=== PATIENT | female | born 2000 | race Caucasian/White ===

== ENCOUNTER 2022-05-21 16:53 | Outpatient (CLI) | payer BC, SELFPAY ==
--- NOTE | 2022-05-21 17:00 | CRLHL7_ITS ---
For Patients: As a result of the Century Cures Act, medical imaging exams and procedure reports are released immediately into your electronic medical record. You may view this report before your referring provider. If you have questions, please contact your health care provider. INDICATION: DYSMENORRHEA COMPARISON: none TECHNIQUE: 2D naqvi scale and color Doppler images were acquired of the pelvis using a transabdominal and transvaginal approach. FINDINGS: Sonographic images demonstrate a normal size and smooth outer contour of the uterus. Uterus measures 5.8 cm in length by 2.7 cm in AP diameter by 3.1 cm in transverse dimension. The myometrium has a normal uniform echotexture. The endometrial lining appears normal and measures 3 mm in composite thickness. The right ovary measures 2.3 x 1.4 x 2.4 cm in size and the left ovary measures 2.4 x 1.3 x 1.3 cm. The ovaries demonstrate normal arterial and venous blood flow on color Doppler analysis. There are no suspicious fluid collections within the cul-de-sac. IMPRESSION: Normal pelvic ultrasound. Dictated by Johann Cline MD @ 05/22/2022 10:15:34 AM (Electronically Signed)
--- OUTSIDE RECORDS SUMMARY | 2022-06-12 16:17 | XMS_ITS | Continuity of Care Document ---
:2000 Author Organization [facility] Address [address] [address] [place] [address] Care Team Providers Name Role Phone Endoscopy [place], [place] Unavailable Unavailable Procedures Procedure Date Ugi En Colono Advance Directives Directive Yes / No Effective Date File Name No Information Encounters Encounter Practice Location Reason(s) Diagnoses Date Provider Provide rs Description For Visit Copied on Encounter [facility] No Endoscopy Referring Endoscopy Endoscopy Information -2017 Center Provider : [facility]. [place] [address] [id number], [address] [place], [place], [place], [place], [address] [place] [id number], [id number], [facility] [address] [facility] tel:[phone] [place], [place], [id number] . tel:[phone] Family History Family Member Type Diagnosis Age At Onset No Information Payers Payer name Insurance type Covered democrat ID Authorization(s ) [employer] BL [id number] Social History Type Description Quantity Date Captured Comments Sex Female Smoking Status No Information Chief Complaint And Reason For Visit No Information Reason For Referral Reason For Referral No Information Plan Of Treatment Date Type Action Status No Information History Of Present Illness Encounter Date Complaint History Of Present I llness No Information Functional Status Date Functional Assessment No Information Instructions Date Instruction Additional Informati on No Information Assessments Type Assessment Date No Information Patient Care Teams Name Effective Dates (start - stop) Status M embers No Information
--- OUTSIDE RECORDS SUMMARY | 2022-06-12 16:17 | XMS_ITS | Continuity of Care Document ---
:2000 Author Organization [facility] Address [address] [address] [place] [address] Phone Care Team Providers Name Role Phone Felix HERNÁNDEZ, Akiko Unavailable Unavailable Allergies, Adverse Reactions, Alerts Substance Reaction Status Criticality No Known Allergies Active No Informatio n Medications Medication Instructions Dosage Effective Dates Status Comment s (start - stop) Tylenol 325 mg Take Tylenol 650mg - Active tablet PO half hour before infusion Remicade 100 mg Administer Remicade - Active intravenous solution 7mg/kg every eight weeks, infuse by IV route Claritin-D 24 Hour take 1 tablet by - Active 10 mg-240 mg oral route as needed tablet,extended release Tylenol 325 mg Take Tylenol 650mg - Active tablet PO half hour before infusion Remicade 100 mg Administer Remicade - Active intravenous solution 7mg/kg every eight weeks, infuse by IV route Dinora (28) 0.3 take 1 tablet by 1.00 tablet - Active mg-30 mcg tablet oral route every day Vitamin D3 1,000 take 1 capsule by 1 capsule - Active unit capsule oral route every day Ventolin HFA 90 inhale 2 puff by - Active mcg/actuation inhalation route aerosol inhaler every 4 - 6 hours as needed multivitamin tablet take 1 tablet by - Active oral route every day with food Procedures Procedure Date IV Infusion Up To 1 Hour Remicade Per 10 Mg Remicade Per 10 Mg IV Infusion Up To 1 Hour Remicade Per 10 Mg IV Infusion Up To 1 Hour Remicade Per 10 Mg IV Infusion Up To 1 Hour Remicade Per 10 Mg IV Infusion Up To 1 Hour Remicade Per 10 Mg Offic/outpt E&m Estab Low-mod IV Infusion Up To 1 Hour Remicade Per 10 Mg IV Infusion Up To 1 Hour Remicade Per 10 Mg Remicade Per 10 Mg Routine Serum Collection Bld Ct; Hg/pltlt Ct Auto/compl Hepatic Function Panel IV Infusion Up To 1 Hour Remicade Per 10 Mg Remicade Per 10 Mg IV Infusion Up To 1 Hour Remicade Per 10 Mg IV Infusion Up To 1 Hour Remicade Per 10 Mg Remicade Per 10 Mg Routine Serum Collection Bld Ct; Hg/pltlt Ct Auto/compl Sed Rate, Erythrocyte; Auto C-reactive Prot Comp Metabolic Panel Vitamin D; 25 Hydroxy Bilirubin; Direct IV Infusion Up To 1 Hour Remicade Per 10 Mg Remicade Per 10 Mg IV Infusion Up To 1 Hour Remicade Per 10 Mg Remicade Per 10 Mg IV Infusion Up To 1 Hour Remicade Per 10 Mg Remicade Per 10 Mg Routine Serum Collection Bld Ct; Hg/pltlt Ct Auto/compl Sed Rate, Erythrocyte; Auto Comp Metabolic Panel Cyanocobalamin C-reactive Prot Established Level 4 or 25-39 min IV Infusion Up To 1 Hour Remicade Per 10 Mg IV Infusion Up To 1 Hour Remicade Per 10 Mg Routine Serum Collection Hepatic Function Panel Bld Ct; Hg/pltlt Ct Auto/compl IV Infusion Up To 1 Hour Remicade Per 10 Mg Small Bowel PillCam Capsule 1st Day Offic/outpt E&m Estab Mod-hi 2 Colonoscopy Flex; W/bx 1/mx Ugi Endo; W/bx 1/mx Level Iv-surg Path Gross/micro Offic/outpt E&m Estab Mod-hi 2 Offic/outpt E&m Estab Mod-hi 2 Offic/outpt E&m Estab Mod-hi 2 Offic/outpt E&m Estab Mod-hi 4 Routine Serum Collection Bld Ct; Hg/pltlt Ct Auto/compl Sed Rate, Erythrocyte; Auto C-reactive Prot Comp Metabolic Panel Vitamin D; 25 Hydroxy Offic/outpt E&m Estab Mod-hi 2 Routine Serum Collection Bld Ct; Hg/pltlt Ct Auto/compl Sed Rate, Erythrocyte; Auto C-reactive Prot Comp Metabolic Panel Iron Vitamin D; 25 Hydroxy Routine Serum Collection Bld Ct; Hg/pltlt Ct Auto/compl Sed Rate, Erythrocyte; Auto C-reactive Prot Comp Metabolic Panel Iron Vitamin D; 25 Hydroxy Offic/outpt E&m [facility] Mod-ga 2 Routine Serum Collection Bld Ct; Hg/pltlt Ct Auto/compl Sed Rate, Erythrocyte; Auto Cyanocobalamin C-reactive Prot Comp Metabolic Panel Iron Iron Binding Capacity Vitamin D; 25 Hydroxy Offic/outpt E&m [facility] Mod-ga 2 Colonoscopy Flex; W/bx 1/mx Ugi Endo; W/bx 1/mx Level Iv-surg Path Gross/micro Special Stains; Grp I Microorg Offic/outpt E&m [facility] Routine Serum Collection Bld Ct; Hg/pltlt Ct Auto/compl Sed Rate, Erythrocyte; Auto C-reactive Prot Comp Metabolic Panel Iron Iron Binding Capacity Ag-immunoassay; Hep B Surface Hep B Core Antibody Advance Directives Directive Yes / No Effective Date File Name No Information Encounters Encounter Practice Location Reason(s) Diagnoses Date Provider Provide rs Description For Visit Copied on Encounter [facility] No Information Felix Dig[facility]ive [place] Akiko. [facility], Clinic [id number], [address], [place] [address], [place], [place], [place] [id number], [place], [place], [place] [id number], tel:[phone] US. [phone] tel:[phone] [facility] Crohn's disease Steve HERNÁNDEZ Refe rring Digestive [facility] Que. 3001 Prov ider: Health PA, and lg int w/o 2 Lenorah Refer ral PO [address] complications [address] [place], [place]. [address], [address], [place], [place], [place], [place], [id number], [id number], [place]. tel: tel:[phone] [facility] Crohn's disease Triston- Felix [facility] of both [facility] MD Wharton. Health PA, and lg int w/o 2 3001 PO Box complications [place] [address], [address], [place] [address], [place], [place], [place] [id number], [place], [place], [place] [id number], tel: US. [phone] tel:[phone] [facility] Crohn's disease Miguelina HERNÁNDEZ Refer ring Digestive [place] of both [facility] [place]. 3001 Prov ider: Health PA, and lg int w/o 2 Rene Refer ral PO [place] [address] [place]. [address], [address], [place], [place], [place], [place], [id number], [id number], [place]. tel: tel:[phone] [facility] Crohn's disease Bethany HERNÁNDEZ Referr [facility] [place] of both [facility] Mushtaq. Provide r: Health PA, and lg int w/o 2 3000 Referr al PO [address] complications Rene [address]. [address], [address], [place] [address], [place], [place], [place] [id number], [place], [place], [place] [id number], tel: US. [phone] tel:[phone] [facility] Crohn's disease [facility] of both small MD Wharton. Health PA, and lg int w/o 2 300 PO [address] complications [place] [address], [address], [place] [address], [place], [place], [place] [id number], [place], [place], [place] [address], tel: US. [phone] tel:[phone] [facility] Crohn's disease Dec-2 Jimenez DO Referr ing [facility] [place] of both small 8- Александр. 3001 Prov ider: Health PA, and lg int w/o 1 Lenorah Refer ral PO [address] [place], [place]. [address], [address], [place], [place], [place], [place], [id number], [id number], [place]. tel: tel:[phone] [facility] Crohn's disease Oct- [place] [facility] [place] of both small 7- MD Wharton. Health PA, and lg int w/o 300 PO Box complications Rene [address], [address], [place] [address], [place], [place], [place] [id number], [place], [place], [place] [address], tel: US. [phone] tel:[phone] [facility] Crohn's disease Sep- Rank Referri ng [facility] [place] of both small - Estrada. Provide r: Health PA, and lg int w/o 3000 Referr al PO Box complications [place] [address]. [address], [address], [place] [address], [place], [place], [place] [id number], [place], [place], [place] [address], tel: US. [phone] tel:[phone] Offic/outpt [facility] Crohn's disease Aug- Felix R idania E&m Estab Digestive [place] Symptoms of both small 3- MD Wharton. Provider: Low-mod Health PA, Clinic or and lg int w/o 300 Referr al PO Box Concerns complications [place] Self. [address], (chief [address], [place] complaint) [address], [place], [place], Previous [place] [id number], History [place], [place], [place] Review [id number], tel: (chief [place]. [phone] complaint) tel:[phone] [facility] Crohn's disease Sep- Teagarden Refer ring Dig[facility] [place] of both small 0-202 DO Cheng. Provid er: Health PA, and lg int w/o 1 3001 Referr al PO Box complications Rene [address]. [address], [address], [place] [address], [place], [place], [place] [id number], [place], [place], [place] [address], tel:+ US. [phone] tel:[phone] [facility] Crohn's disease Jul-0 [place] [facility] [place] of both small MD Wharton. Health PA, and lg int w/o 1 3001 PO Box complications [address]ene [address], [address], [place] [address], [place], [place], [place] [id number], [place], [place], [place] [address], tel:+ US. [phone] tel:[phone] [facility] GI Crohn's disease Hanouneh Referr ing [facility] [place] Symptoms of both small MD Provide r: Health PA, or and lg int w/o 1 White. Refer ral PO Box Concerns complications 3001 Self. [address], (chief [place] complaint) Street NE, [place], [place], [address], [id number], [place], [place], tel:+ [phone] [place]. tel:[phone] [facility] Crohn's disease [place] Re ferring Digestive of both small MD Wharton. Provid er: Health PA, and lg int w/o 1 3001 Referr al PO Box complications Rene [address]. [address], [address], [place] [address], [place], [place], [place] [id number], [place], [place], [place] [address], tel:+ US. [phone] tel:[phone] [facility] Crohn's disease March- Rank Referri ng [facility] [place] of both small Estrada. Provide r: Health PA, and lg int w/o 1 3001 Referr al PO Box complications [place] [address]. [address], [address], [place] [address], [place], [place], [place] [id number], [place], [place], [place] [id number], tel:+ US. [phone] tel:[phone] [facility] No Information [place] [facility] [place] MD Wharton. Health PA, 1 [address]001 [address] [place] [address], [address], [place] [address], [place], [place], [place] [id number], [place], [place], [place] [address], tel: US. [phone] tel:[phone] [facility] Crohn's disease Teagarden Refer ring [facility] [place] of both small DO Cheng. Provid er: Health PA, and lg int w/o 1 3001 Referr al PO Box complications [place] [address]. [address], [address], [place] [address], [place], [place], [place] [id number], [place], [place], [place] [address], tel: US. [phone] tel:[phone] [facility] Crohn's disease Alec HERNÁNDEZ Refjerry rring Digestive [place] of both [place]. Provide r: Health PA, and lg int w/o 3001 Referr al PO Box complications [place] [address]. [address], [address], [place] [address], [place], [place], [place] [id number], [place], [place], [place] [id number], tel:+ US. [phone] tel:[phone] [facility] Crohn's disease [place] Re ferring Digestive of both small MD Mackenzie. Provid er: Health PA, and lg int w/o 3001 Referr al PO Box complications [place] [address]. [address], [address], [place] [address], [place], [place], [place] [id number], [place], [place], [place] [address], tel: US. [phone] tel:[phone] [facility] Crohn's disease [place] [facility] [place] of both small MD Wharton. Health PA, Clinic and lg int w/o 1 3001 PO Box complications Rene [address], [address], [place] [address], [place], [place], [place] [id number], [place], [place], [place] [address], tel:+ US. [phone] tel:[phone] [facility] Crohn's disease Dec-0 Benji HERNÁNDEZ Refe rring [facility] [place] of both small 2- Rudy. Provide r: Health PA, and lg int w/o 0 3001 Referr al PO Box complications [place] [address]. [address], [address], [place] [address], [place], [place], [place] [id number], [place], [place], [place] [id number], tel:+ US. [phone] tel:[phone] [facility] No Information Dec-0 Benji HERNÁNDEZ Digestive Rudy. Health PA, 0 [address]001 [address] [place] [address], [address], [place] [address], [place], [place], [place] [id number], [place], [place], [place] [address], tel:+ US. [phone] tel:[phone] [facility] Crohn's disease Aug-0 Benji HERNÁNDEZ Refe rring Dig[facility]ive [place] of both small 7 Rudy. Provide r: Health PA, and lg int w/o 0 3001 Referr al PO Box complications Rene [address]. [address], [address], [place] [address], [place], [place], [place] [id number], [place], [place], [place] [id number], tel:+ US. [phone] tel:[phone] [facility] Crohn's disease Nikunj HERNÁNDEZ Refer ring Dig[facility]ive [place] of both small 0-202 Edilberto. Provide r: Health PA, and lg int w/o 0 3001 Referr al PO Box complications [place] [address]. [address], [address], [place] [address], [place], [place], [place] [id number], [place], [place], [place] [address], tel:+ US. [phone] tel:[phone] [facility] Crohn's disease Jun- Felix washburning Digestive of both small 0-202 MD Wharton. Provid er: Health PA, and lg int w/o 0 3001 Referr al PO Box complications [place] [address]. [address], [address], [place] [address], [place], [place], [place] [id number], [place], [place], [place] [address], tel: US. [phone] tel:[phone] Established [facility] Crohn's disease May- [place] R eferring Level 4 or Digestive [place] Symptoms of both small - MD Wharton . Provider: 25-39 min Health PA, Clinic or and lg int w/o 0 3001 Refe rral PO Box Concerns complications [place] Self. [address], (chief [address], [place] complaint) [address], [place], [place], [place] [id number], [place], [place], [place] [address], tel: US. [phone] tel:[phone] [facility] Crohn's disease Triston- Alec HERNÁNDEZ Refe rring Digestive [place] of both small - Teo. Provide r: Health PA, and lg int w/o 0 3001 Referr al PO Box complications [place] [address]. [address], [address], [place] [address], [place], [place], [place] [id number], [place], [place], [place] [address], tel: US. [phone] tel:[phone] [facility] Crohn's disease Feb- America HERNÁNDEZ Refer ring Digestive [place] of both small 0-202 Russell. Provider : Health PA, and lg int w/o 0 3001 Referr al PO Box complications [place] [address]. [address], [address], [place] [address], [place], [place], [place] [id number], [place], [place], [place] [address], tel: US. [phone] tel:[phone] [facility] Crohn's disease Apr-2 Felix Perez ferring Digestive of both small 0-202 MD Wharton. Provid er: Health PA, and lg int w/o 0 3001 Referr al PO Box complications [place] [address]. [address], [address], [place] [address], [place], [place], [place] [id number], [place], [place], [place] [address], tel:[phone] US. [phone] tel:[phone] [facility] Crohn's disease Estefany HERNÁNDEZ Refe rring [facility]ive [place] [facility] : Health PA, and lg int w/o 0 3001 Referr al PO Box complications [place] [address]. [address], [address], [place] [address], [place], [place], [place] [id number], [place], [place], [place] [address], tel:+ US. [phone] tel:[phone] [facility] No Information [place] [facility] [place] MD Wharton. Health PA, Clinic 0 3001 [address] [place] [address], [address], [place] [address], [place], [place], [place] [id number], [place], [place], [place] [address], tel: US. [phone] tel:[phone] [facility] Crohn's disease [place] Dig[facility]ive of both small MD Wharton. Health PA, and lg int w/o 0 3001 PO Box complications [place] [address], [address], [place] [address], [place], [place], [place] [id number], [place], [place], [place] [address], tel:+ US. [phone] tel:[phone] [facility] [place] [facility] [place] of both small MD Wharton. Health PA, Clinic and lg int w/o 0 3001 PO Box complications Rene [address], [address], [place] [address], [place], [place], [place] [id number], [place], [place], [place] [address], tel: US. [phone] tel:[phone] [facility] Crohn's disease Kalyan HERNÁNDEZ Ref erring Digestive of both small 3-201 Emma. Provider : Health PA, and lg int w/o 9 3001 Referr al PO Box complications Rene [address]. [address], [address], [place] [address], [place], [place], [place] [id number], [place], [place], [place] [address], tel: US. [phone] tel:[phone] [facility] No Information Felix Digestive 2-201 MD Wharton. [facility], 9 3001 [address] [place] [address], [address] [place], [facility] [address], [place], [place], [place] [id number], [place], [place], [place] [address], tel: US. [phone] tel:[phone] Offic/outpt [facility] GI Crohn's disease [place] E&m Estab Digestive [place] Symptoms of both small 8-201 MD Wharton. [facility] 2 [facility], Clinic or and lg int w/o 3001 PO Box Concerns complications Rene [address], (chief [address] NE, [facility] complaint) [address], [place], [place], [place] [id number], [place], [place], [place] [address]12[address], tel: US. [phone] tel:[phone] [facility] Crohn's disease Felix Refer ring Digestive End[facility] of both small 3-201 MD Wharton. Prov ider: [facility], [place] and lg int w/o 300 Aayush [place], [address], hn's disease of [address] NE, [address] [place] [address] both small and [address], [place], [place], lg int w/o [place] [address], [id number], complicationsCro s, [place], [place] hn's disease of [id number], Luque y, tel: both [place] and [place]. [place], 55 416. [phone] lg int w/o tel: tel:[phone] [facility] Cro[facility] Felix emerson E&m Estab Digestive [place] Symptoms of both small 1-201 MD Wharton. Provider: [facility] 2 [facility], Clinic or and lg int w/o 8 3001 Refer ral PO Box Concerns complications [place] Self. [address], (chief [address] NE, [facility] complaint) [address], [place], [place], [place] [id number], [place], [place], [place] [address], tel: US. [phone] tel:[phone] [facility] Peds Clinic Crohn's disease [place] Digestive of both small 3-201 MD Akiko. Health PA, and lg int w/o 8 3001 PO Box complications [place] [address], [address], [facility] [address], [place], [place], [place] [id number], [place], [place], [place] [address], tel: US. [phone] tel:[phone] Offic/outpt [facility] GI Crohn's disease [place] Referring E&m Estab Digestive Symptoms of both small 0-201 MD Akiko. Pro vider: Mod-hi 2 Health PA, or and lg int w/o 300 Juan Carlos a PO Box Concerns complications [facility] , [address], ([address], [address] [facility] complaint) [address], [place], [place], [place] [address], [id number], [place], [place], [place] [id number], [place], tel: [place], [address]. 64484[address] tel: tel:[phone] Offic/outpt [facility] GI Crohn's disease [place] E&m Estab Digestive Symptoms of both small 2-201 MD Akiko. Mod-hi 2 Health PA, or and lg int w/o 300 PO Box Concerns complications [place] [address], (chief [address], [place] complaint) [address], [place], [place], [place] [id number], [place], [place], [place] [address], tel: US. [phone] tel:[phone] [facility] Pediatric Crohn's disease [place] [facility] of both small 6-201 MD Akiko. Health PA, and lg int w/o 3001 PO Box complications [place] [address], [address] NE, [facility] [address], [place], [place], [place] [id number], [place], [place], [place] [address], tel: US. [phone] tel:[phone] [facility] Pediatric Crohn's disease [place] [facility] of both small 8-201 MD Wharton. Health PA, and lg int w/o 6 3001 PO Box complications Rene [address], [address], [place] [address], [place], [place], [place] [id number], [place], [place], [place] [address], tel: US. [phone] tel:[phone] Offic/outpt [facility] Pediatric GI Crohn's disease [place] E&m Estab Dig[facility]ive Clinic Symptoms of both small 0-201 MD Wharton. Mod-hi 4 Health PA, or and lg int w/o 6 3001 PO Box Concerns complications [place] [address], (chief [address], [place] complaint) [address], [place], [place], [place] [id number], [place], [place], [place] 8[address], tel: US. [phone] tel:[phone] [facility] [place] Digestive of both small 5-201 MD Wharton. Health PA, and lg int w/o 6 3001 PO Box complications Rene [address], [address], [place] [address], [place], [place], [place] [id number], s, [place], [place] [address], tel: US. [phone] tel:[phone] [facility] Pediatric Crohn's disease [place] [facility] of both small 9-201 MD Wharton. Health PA, and large 5 3001 PO Box intestine Rene [address], [address], [place] complications [address], [place], [place], [place] [id number], s, [place], [place] [address], tel: US. 8955800 tel:[phone] Offic/outpt [facility] Pediatric GI Crohn's disease [place] R eferring E&m Estab Digestive Clinic Symptoms of both small 9-201 MD Wharton. Pro vider: Mod-hi 2 Health PA, or and large 5 3001 Referral PO Box Concerns intestine Rene Self. [address], (chief without [address], [place] complaint) complications [address], [place], [place], [place] [id number], [place], [place], [place] [address], tel: US. [phone] tel:[phone] [facility] No Information [place] [facility]ive 0-201 MD Wharton. Health PA, 5 [address]001 [address] [place] [address], [address], [place] [address], [place], [place], [place] [id number], [place], [place], [place] [address], tel: US. 0834091 tel:[phone] [place] Pediatric Crohn's [facility] Digestive Clinic Small/large 0-201 MD Wharton. Health PA, Intestine 5 [address]001 [address] [place] [address], [address], [place] [address], [place], [place], [place] [id number], [place], [place], [place] 17[address]645[address], tel: US. 6246774 tel:[phone] Offic/outpt [facility] Crohn's [place] E&m [facility] Digestive Clinic Symptoms Small/large 6-201 MD Wharton. Mod-hi 2 Health PA, or IntestineCrohn's 5 3001 PO Box Concerns disease of both Rene [address], (chief small and large Street NE, [place] complaint) intestine [address], [place], [place], without [place] [id number], complications s, [place], [place] 939636447, tel: US. [phone] tel:[phone] Offic/outpt [facility] Crohn's [place] E&m [facility] Digestive Clinic Symptoms Small/large 4-201 MD Wharton. Mod-hi 2 Health PA, or Intestine 5 3001 PO Box Concerns Rene [address], (chief [address] NE, [place] complaint) [address], [place], [place], [place] [id number], [place], [place], [place] 9[address], tel: US. 9338670 tel:[phone] [facility] Failure To [place] HERNÁNDEZ Digestive Endoscopy Thrive 3-201 Terra. [facility], [place] PediatricsFailur 5 3001 [address] e To Thrive Rene [address], [address], Mayai al Enteritis [address], [place], [place], NosGastritisFail [place] [id number], ure To Thrive [place], [place], [place] Pediatrics [id number], tel:+2 US. [phone] tel:[phone] Offic/outpt [facility] Failure To [facility] Digestive Clinic Symptoms Thrive 9-201 MD Wharton. [facility], de Pediatrics 5 3001 PO Box Concerns [place] [address], (chief Street NE, [place] complaint) [address], [place], [place], [place] [id number], [place], [place], [place] 297[address], tel:+ US. [phone] tel:[phone] Family History Family Member Type Diagnosis Age At Onset Father Problem (finding) Crohn's disease Father Problem (finding) asthma Mother Problem (finding) Alive and well Maternal grandmother Problem (finding) Lymphoma Immunizations Vaccine Date Status Comments SARS-COV-2 (COVID-19) vaccine, administered N ote: [facility] bi-directional mRNA, spike protein, LNP, interf shefali ; Source: Other preservative free, 30 mcg/0.3mL Registry dose SARS-COV-2 (COVID-19) vaccine, administered N ote: [facility] bi-directional mRNA, spike protein, LNP, interf shefali ; Source: Other preservative free, 30 mcg/0.3mL Registry dose SARS-COV-2 (COVID-19) vaccine, administered N ote: [facility] bi-directional mRNA, spike protein, LNP, interf shefali ; Source: Other preservative free, 30 mcg/0.3mL Registry dose Influenza administered Note: [facility] bi-di rectional interface ; Sour ce: Other Registry Afluria Qd administered Note: [facility] bi-directional interface ; Sour ce: Other Registry Afluria Qd administered Note: [facility] bi-directional interface ; Sour ce: Other Registry meningococcal B vaccine, fully administered N ote: [facility] bi-directional recombinant interface ; Sour ce: Other Registry Fluzone Quad 6mo or older administered Note: [facility] bi-directional interface ; Sour ce: Other Registry meningococcal B vaccine, fully administered N ote: [facility] bi-directional recombinant interface ; Sour ce: Other Registry meningococcal polysaccharide administered Not e: [facility] bi-directional (groups A, C, Y and W-135) inter face ; Source: Other diphtheria toxoid conjugate Anna stry vaccine (MCV4P) Havrix pediatric administered Note: [facility] bi-d irectional interface ; Sour ce: Other Registry Human Papillomavirus 9-valent administered No te: [facility] bi-directional vaccine interface ; Sour ce: Other Registry Influenza administered Note: [facility] bi-di rectional interface ; Sour ce: Other Registry Influenza, injectable, administered Note: Inv alid documented quadrivalent, preservative free, admin date was 3 yrs or older . ; Source: Other Provider Human Papillomavirus 9-valent administered No te: [facility] bi-directional vaccine interface ; Sour ce: Other Registry Influenza administered Note: [facility] bi-di rectional interface ; Sour ce: Other Registry Influenza, injectable, administered Note: Inv alid documented quadrivalent, preservative free, admin date was 3 yrs or older . ; Source: Other Provider Human Papillomavirus 9-valent administered No te: [facility] bi-directional vaccine interface ; Sour ce: Other Registry Havrix pediatric administered Note: [facility] bi-d irectional interface ; Sour ce: Other Registry Human Papillomavirus 9-valent administered No te: [facility] bi-directional vaccine interface ; Sour ce: Other Registry Influenza administered Note: [facility] bi-di rectional interface ; Sour ce: Other Registry Influenza virus vaccine, administered Note: I nvalid documented injectable, quadrivalent, split admin date was virus, preservative free, 3 years . ; Source: or older Fluarix Quad 3070-0767 Other Provider meningococcal oligosaccharide administered No te: [facility] bi-directional (groups A, C, Y and W-135) inter face ; Source: Other diphtheria toxoid conjugate Anna stry vaccine (MCV4O) tetanus toxoid, reduced administered Note: [facility] bi-directional diphtheria toxoid, and acellular interface ; Source: Other pertussis vaccine, adsorbed Anna stry varicella virus vaccine administered Note: [facility] bi-directional interface ; Sour ce: Other Registry poliovirus vaccine, inactivated administered Note: [facility] bi-directional interface ; Sour ce: Other Registry measles, mumps and rubella virus administered Note: [facility] bi-directional vaccine interface ; Sour ce: Other Registry diphtheria, tetanus toxoids and administered Note: [facility] bi-directional acellular pertussis vaccine inte rface ; Source: Other Registry poliovirus vaccine, inactivated administered Note: [facility] bi-directional interface ; Sour ce: Other Registry measles, mumps and rubella virus administered Note: [facility] bi-directional vaccine interface ; Sour ce: Other Registry Haemophilus influenzae type b administered No te: [facility] bi-directional vaccine, PRP-T conjugate interfa ce ; Source: Other Registry diphtheria, tetanus toxoids and administered Note: [facility] bi-directional acellular pertussis vaccine inte rface ; Source: Other Registry varicella virus vaccine administered Note: [facility] bi-directional interface ; Sour ce: Other Registry Pneumovax administered Note: [facility] bi-di rectional interface ; Sour ce: Other Registry Pneumovax administered Note: [facility] bi-di rectional interface ; Sour ce: Other Registry Energix Pediatric administered Note: [facility] bi- directional interface ; Sour ce: Other Registry Haemophilus influenzae type b administered No te: [facility] bi-directional vaccine, PRP-T conjugate interfa ce ; Source: Other Registry Energix Pediatric administered Note: [facility] bi- directional interface ; Sour ce: Other Registry diphtheria, tetanus toxoids and administered Note: [facility] bi-directional acellular pertussis vaccine inte rface ; Source: Other Registry Pneumovax administered Note: [facility] bi-di rectional interface ; Sour ce: Other Registry Haemophilus influenzae type b administered No te: [facility] bi-directional vaccine, PRP-T conjugate interfa ce ; Source: Other Registry diphtheria, tetanus toxoids and administered Note: [facility] bi-directional acellular pertussis vaccine inte rface ; Source: Other Registry poliovirus vaccine, inactivated administered Note: [facility] bi-directional interface ; Sour ce: Other Registry Pneumovax administered Note: [facility] bi-di rectional interface ; Sour ce: Other Registry Haemophilus influenzae type b administered No te: [facility] bi-directional vaccine, PRP-T conjugate interfa ce ; Source: Other Registry Energix Pediatric administered Note: [facility] bi- directional interface ; Sour ce: Other Registry diphtheria, tetanus toxoids and administered Note: [facility] bi-directional acellular pertussis vaccine inte rface ; Source: Other Registry poliovirus vaccine, inactivated administered Note: [facility] bi-directional interface ; Sour ce: Other Registry Payers Payer name Insurance type Covered constitution party ID Authorization(s ) [facility] [id number] [facility] CI Remicade Social History Type Description Quantity Date Captured Comments Alcohol Use Details Unknown Caffeine Use Details Unknown Tobacco Use Status No Information Smoking Status No Information Sex Female Chief Complaint And Reason For Visit No Information Reason For Referral Reason For Referral No Information Plan Of Treatment Date Type Action Status Referral Ordered: ordered Hepatic Function Panel Appointment date/timeframe: 06/11/2016 Referral Ordered: ordered Financial Counselor Review Appointment date/timeframe: -today Referral Ordered: ordered Calprotectin, Fecal Appointment date/timeframe: -today Referral Ordered: ordered follow-up visit with Akiko knox MD 6 Months Appointment date/timeframe: 6 Months Referral Ordered: ordered MRI Enterography With Pelvis WIT HOUT And WITH Contrast Appointment date/timeframe: -today Appointment Segundo Fall BOOKED Appointment Segundo Fall BOOKED History Of Present Illness Encounter Date Complaint History Of Present I llness GI Symptoms or Concerns Previous History Review I had the pleasu re of seeing Segundo for follow-up regarding her Crohn's disease. As you remember, Segundo is 20 years old. and she was diagnosed in ear ly 2014. On her 1st endoscopy and colono scopy, there was mild chronic gastritis, c hronic active ileitis with granulomas and some mild patchy active colitis in the descending co juanjose. Segundo' father has stricturing terminal ileal Crohn's disease and is status post i leocecectomy and is on biologics now for ma ny years. Segundo has also been on Remicade for over 5 years now and has had excellent resolu tion of symptoms and improvement in infla mmatory markers.While her growth symptoms norm alized, she continued for a long time to have mildly elevated CRP levels on her laboratories. Her infliximab levels had been ranging between 8 and 11, but we still had concern for occu lt chronic terminal ileitis. Therefore, she underwent multiple tests to look for on going inflammation. She had a fecal calprote ctin, MR enterography and repeat endoscopy and colonoscopy. The repeat procedures were done on June 16, 2018 and were negative for an y ongoing inflammation. All of the biopsies were normal. The MRE showed some mild hyp erenhancement and restricted diffusion in the terminal ileum, but no thickening or evidence of stricturing disease or partial o bstruction. We also obtained a PillCam s tudy that was unremarkable. The ca lprotectin was normal. We made no changes to h er medications. Thankfully, for the 1st time in the last few years, her CRP victorino lized last year. We are continuing to follow .She receives 300mg of Remicade every 8 wee ks. She is due for her next infusion 09/08. She has received the COVID19 vaccine, wit h the second shot given in early March.Segundo is overall asymptomatic. She denies abdominal walker n, diarrhea, or hematochezia. She daigle s a normal appetite and intake and has not h ad any unintentional weight loss. She is studying at [employer]. She is in her sophomore year, and very busy with school (behavior science sydni benites, art minor) and with the [employer]. 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 GI Symptoms or Concerns GI Symptoms or Concerns I had the pleasu re of seeing Segundo for follow-up regarding her Crohn's disease. Segundo is now 20 yea rs old. She attends this virtual visit indepe ndently and provides verbal consent to pr oceed.As you remember, she was diagnosed in 2014. On her 1st endoscopy and colono scopy, there was mild chronic gastritis, c hronic active ileitis with granulomas and some mild patchy active colitis in the descending co juanjose. Segundo' father has stricturing terminal ileal Crohn's disease and is status post ileoc ecectomy and is on biologics now for ma ny years. Segundo has also been on Remicade for over 4 years now and has had excellent resolu tion of symptoms and improvement in infla mmatory markers.While her growth symptoms norm alized, she continued for a long time to have mildly elevated CRP levels on her laboratories. Her infliximab levels had been ranging between 8 and 11, but we still had concern for occu lt chronic terminal ileitis. Therefore, she underwent multiple tests to look fo GI Symptoms or Concerns I had the pleasu re of seeing Segundo for followup regarding h er Crohn's ileocolitis. I last saw her in May 2018. As you remember, she is 18-year-old w ho was diagnosed in early 2014. On endoscopy a nd colonoscopy, there was mild chronic gastrit is, chronic active ileitis with granulomas and some mild patchy active colitis in the desce nding colon. As you remember, Segundo' fa ther has stricturing terminal ileal Crohn 's disease and is status post ileocecectomy a nd is on biologic therapy. Segundo has been on R emicade for over 3 years now and has had exce llent resolution of symptoms and improve ment in inflammatory markers.While her gr owth and symptoms have normalized, she cont inues to have mildly elevated CRP levels on labs usually around 1 to 1.5. Her inflixim ab level has been between 8 and 11 on average. Last year, because of concerns of chronic occult inflammation in the small intestine, I r ecommended fecal calprotectin, MRE, a nd endoscopy and colonoscopy to assreddy s for underlyin GI Symptoms or Concerns I had the pleasu re of seeing Segundo for followup regarding h er terminal ileal Crohn's disease. As you know , she is a 17-year-old who was diagnosed in 2014. On endoscopy and colonoscopy, there w as mild nonspecific chronic gastritis an d chronic active ileitis with granulomas cons istent with Crohn's disease. She had manas e mild patchy active colitis in the desce nding colon. As you remember, Eric kendall has Crohn's disease, but it is inflammato ry in nature and in the terminal ileum as we ll. He has a history of a stricture. Segundo daigle s been on Remicade now for over 2 years. While her growth and symptoms had normalized, she continued to have mildly elevated CRP levels. Over time, with good biochemistries and a dequate Remicade levels, her CRP is diminishe d somewhat, but still remained in an eleva sam level. On April 13, with her last labs, it was quite low, but at level of 0.55 within normal ranges up to 0.3. Her albumin was also just a little low at 3.2 and her hemoglobin w as n GI Symptoms or Concerns I had the pleasu re of seeing Segundo for followup regarding h er terminal ileal Crohn's disease. As you know , she has had growth failure and in 2014, she had an upper GI small bowel follo w-through that revealed evidence of some ter branden ileitis. She then came to our practice and underwent upper endoscopy and colono scopy. There was mild nonspecific chronic gastritis, and chronic active ileitis with granulomas consistent with Crohn's disease and some mild patchy active colitis in the desce nding colon. As you remember, Eric kendall has Crohn's disease that is inflammatory in the terminal ileum as well. He has had a h istory of stricture. He reports that he has been on methotrexate and Humira and is likely switching to Stelara soon. We have been t racking Segundo with regard to her response to R emicade for growth and biochemistries. She has been quite healthy and asymptomatic overall , however, her laboratory values often show mi ldly elevated CRP levels. Over the last two oc GI Symptoms or Concerns I had the pleasu re of seeing Segundo for followup regarding h er terminal ileal Crohn's disease. As you know , she has had growth failure and in 2014, she had an upper GI small bowel follo wthrough that revealed evidence of some ter branden ileitis. She then came to our practice and underwent upper endoscopy and colono scopy the following week. There was mild nonsp ecific chronic gastritis and chronic active i leitis with granulomas consistent with Croh n's disease. Colonic biopsies showed no e vidence of colitis in the proximal colon. In t he descending colon, there was patchy mild acti ve colitis. Rectal biopsies were normal .As you remember, Segundo' father has Crohn's d isease as well. He also has terminal ileal d isease with a stricture. He has not yet had r equired resection, but he has been on methotre xate and Humira. To start, we used topical ther apies to see if her disease could be con trolled without systemic medication at first. However, her inflammatory markers and hypoa GI Symptoms or Concerns I had the pleasu re of seeing Segundo for followup regarding h er Crohn's disease. She has had growth failu re and an upper GI small bowel followthrough on December 20, 2014, revealed evidence of some terminal ileitis. She then underwent u pper endoscopy and colonoscopy on of last year. There was mild nonspecific chronic gastritis and chronic active ileit is with granulomas consistent with Croh n's disease. The colonic biopsies showed no e vidence of colitis in the ascending or transve rse regions. In the descending colon, th ere was patchy mild active colitis with subtle features of chronicity. Rectal biopsies were normal.As you remember, Segundo's father has Crohn's disease as well. He was just di agnosed in the last few years and has termin al ileal disease with stricture. He has no t yet required resection, but has been started on methotrexate and Humira. He attends t he visit with her today and also learned new information about the family history cori ham. Evidently, A GI Symptoms or Concerns I had the pleasu re of seeing Segundo for followup regarding h er Crohn's ileitis. As you know, she was diagno sed on December 27 after presenting with grow th failure and anemia. Her father also has Croh n's disease that is primarily affecting the terminal ileum. On biopsies, Segundo had granulomas in the terminal ileum along with chronic active ileitis. She also daigle d some mild patchy left-sided colitis.S he attends the visit with her father and repor ts feeling asymptomatic and overall quite we ll. She denies any fevers, oral ulcers, diarrhe a or blood in her stool. She has an excellent appetite and intake. She has continued to char[place] w significant improved weight gain since he r last visit. She is currently just on En tocort. I reviewed her last labs, which abbie edwards done in June. Her sed rate was 13, hemoglo bin 14 with an MCV of 87, and albumin 3.4. The glucose was mildly elevated at 118. CRP still elevated at 9 and iron level normal at 83.Segundo also had an MRE study on January 15, 12 05 GI Symptoms or Concerns I had the pleasu re of seeing Segundo for followup regarding h er Crohn's ileitis. As you know, she was diagno sed on December 27 and after presenting wit h a growth failure and anemia. As you remem sánchez, her father also has Crohn's disease that has primarily affected the terminal ileum. On biopsies, she had granulomas in the te rminal ileum along with chronic active ileit is. She also had some mild patchy left-sided co litis. She has continued to be asymptomatic. She attends the visit with her father and repor ts no new symptoms. No fevers, oral ulcers, diarrhea or blood in her stool. She has had a normal appetite and intake and is quite pleased that she has had significant weight g ain since her last visit. She has gained appro ximately five pounds since I saw her in early . She remains on iron supplementation and Entocort only. She also reports improved jaskaran rgy level. Father thinks that she has a david r color and no longer appears ill. GI Symptoms or Concerns I had the pleasu re of seeing Segundo for followup regarding h er new diagnosis of Crohn's disease. As you know, I first saw her on December 23. She has had long-standing growth failure. She also, on laboratory evaluation, had an e levated CRP and mild anemia. Her albumin was 3.6 and her sedimentation rate w as 16. CRP was 15.5. She then underwent upper endoscopy and a colonoscopy on . The duodenum was normal. There was ve ry mild nonspecific chronic gastritis. T he esophagus was normal. There was chronic ac tive ileitis with granulomas consisten t with Crohn's disease. The colonic biopsies showed no evidence of colitis in the ascen ding or transverse sections. In the delgado cending colon, there was patchy mild active c olitis with subtle features of chronici ty. The rectum biopsies were normal.As you r carlos, Segundo's father has Crohn's disease as well. He was just diagnosed in the las t couple of years and has terminal ileal disea se. He has not required resection, but evide n GI Symptoms or Concerns I had the pleasu re of seeing Segundo for initial consultation regarding possible Crohn's disease. She has had growth failure and a recent upper G I small bowel follow-through done on December [address] evidence of some [address] branden ileitis .She attends the visit with her p tiffany. Segundo is a 14-year-old who has had chronic growth failure. I do also s ee a bone age on 10/20/2014 that was within normal standard deviations.Her fathe r has Crohn's disease with terminal ileal disea se. He was just diagnosed about two years ago and is on both Humira and methotrexate. Eviden tly, he is still symptomatic. The aun t and paternal grandmother and maternal great a unt have rheumatoid arthritis. No other known autoimmune diseases. The maternal grandmo ther had lymphoma.On review of systems, Orin angulo has had oral ulcers. She reports having b owel movements approximately daily that are non bloody. They are formed and she d enies any episodes of diarrhea. She has daigle d no fevers, arthralgias, per Functional Status Date Functional Assessment No Information Instructions Date Instruction Additional Informati on -Labs with the next infusion-Continue Re lated to Crohn's disease of both current dose of remicade. -Follow-up sma ll and lg int w/o complications in 1 year. 1. Continue on the Remicade as Related t o Crohn's disease of both currently dosed. This is small and lg in t w/o complications monotherapy.2. I would like to see her back on an annual basis.3. I will try to connect her with the other patient who is likely to be quite willing to help her out when needed on campus.I am glad Segundo is doing so well. I answered all of her questions today. We did discuss the issue of COVID, as there are no vaccinations for her yet. In fact, monotherapy with biologics like anti-TNFs do not increase morbidity of COVID and at her age range, she is at lowest risk for having significant and serious disease.Thank you for allowing me to participate in Segundo' care. Infliximab IV per accelerated protocol Infliximab IV per accelerated protocol Infliximab IV per accelerated protocol 1. As above, we will obtain the Related to Crohn's disease of both PillCam study of the small intestine sma ll and lg int w/o complications to look for an occult inflammation. It could be causing the CRP elevation. She does not report arthralgias and arthritis or any eye pain or other inflammatory issues that could be causing this elevation.2. I would like to see her back on an annual basis.3. We will continue her on Remicade monotherapy. She will be getting labs approximately every other infusion at this point.Thank you for allowing me to participate in Segundo' continued care. It is always a pleasure to see her and her family. 1. I again strongly recommend sending Re lated to Crohn's disease of both a fecal calprotectin test. Father small and lg int w/o complications will check with insurance again as he has a new insurance. If this is covered, this would be the first step in evaluating for degree of inflammation.2. If the fecal calprotectin is elevated or not able to be obtained, then I do recommend a followup upper endoscopy and colonoscopy. It has been several years now since the diagnostic scopes and again with the persistence of CRP and then now persistent mild inflammation on the MRE and symptoms, I think we need to really identify if her disease is in mucosal remission, which is the ultimate goal of biologic therapy. Reviewed that with Segundo and her father. They said that they will be taking a family trip to [facility] in mid June, June 17 to , so I recommended probably scheduling that before travel.3. She will continue to get her routine labs with IV placement for Remicade, so I am not ordering labs today.4. Because of her new symptoms, I am recommending sooner followup, for example, in about 4 months to reassess how she is doing.5. Of note, if on our next step testing, either fecal calprotectin or the scopes show that her disease truly is in good remission, and if her abdominal pain persists, then I would recommend pursuing treatment for possible constipation based on findings of the x-ray.Thank you for allowing me to participate in Segundo' care. 1. As above. She will continue to get Re lated to Crohn's disease of both her labs right before the infusion at all and lg int w/o complications [facility]. She continues on an [id number] infusion cycle.2. I would like to see her for followup in six months. I wished her well in her adventures in [place].Thank you for allowing me to participate in her continued care. As above. I would like to see her Relate d to Crohn's disease of both back in six months. I answered all of all and lg int w/o complications their questions. I have put through an order for Related to Crohn's disease of both financial approval for the Remicade smal l and lg int w/o complications to start. I also ordered labs to be done with IV placement at the time of her first infusion. She will then get induction dosing with zero, two and six week standard regimen and then be on every eight-week dosing. I note that I am starting at 200 mg which is at about the 5 per kilo dosing. She will get premeds of Tylenol and methylprednisolone.I will check her vitamin B12 and vitamin D level with her next labs as well. I would like to see her back in six months for followup unless new issues arise.Thank you for allowing me to participate in her care. C-Reactive Protein I continue to be pleased with Segundo' Re lated to Crohn's disease of both current clinical status. She is in small and large intestine without clinical remission. Based on her last co mplications labs, however, she is not in biochemical remission. At this point, she is due for labs. I have mentioned in the past that we may need to add 6-MP or switch to Remicade, both of which would be more effective treatment for her Crohn's disease over the medical terminologist. However, in some children with just a [id number] activity of the terminal ileum, they do respond to Entocort monotherapy. We also discussed that we could add Pentasa if her glucose remains a little elevated, so that we could drop the Entocort back to 6 mg or 3 mg doses. I would like to see her back for general followup in about six months. I answered all of their questions today.Thank you for allowing me to participate in her care. I am pleased with Segundo' current Relate d to Crohn's Small/large clinical status. I reviewed again the In testine results of the MRE study that was done on January 15. That showed no fistulizing disease and only isolated terminal ileitis. No pelvic disease. Today, we obtain followup labs. At this point, she will continue to get weight checks approximately every two to three months and then see me for followup in six months. I will not change her medications at this point but she may be able to wean off of the twice daily iron if her anemia has resolved. We discussed again that 6-MP or switching to Remicade may also be more effective treatments in the long run in managing her Crohn's disease especially if growth continues to be an issue. Thank you for allowing me to participate in her care. Segundo has Crohn's disease, primarily Re lated to Crohn's Small/large with terminal ileitis and some mild Inte haja patchy colitis. This likely is the primary cause of her growth failure and we discussed this phenotype of Crohn's disease at some length today. As further evaluation, I am recommending an MRE be done to evaluate the extent of terminal ileal disease. If she has evidence of a significant disease then I would strongly advocate moving forward with Remicade therapy or Humira therapy, which we briefly did discuss today. To start, she will get Entocort 9 mg daily to treat terminal ileitis. I would like her to get weight checks once per month. I will see her for followup in about two months unless we make further changes before that time. Obviously, they should call with any questions or concerns or new symptoms prior to that date. I had a lengthy discussion about Crohn's disease and its management and provided them with educational materials.Thank you for allowing me to participate in her continued care. MRI Enterography With Pelvis WITHOUT And WITH Contrast I discussed with Segundo and her Related to Failure To Thrive parents that because of her growth Pedia trics failure, the abnormal lab findings, the family history of Crohn's disease and then the upper GI small bowel follow through findings of terminal ileitis, I have a strong suspicion of small intestinal Crohn's disease. I discussed that I would like some repeat labs done today and then I would like her scheduled for an upper endoscopy and colonoscopy with biopsies. If the diagnosis is confirmed, we would meet to discuss this and discuss further the possible treatments. Father is already aware of the management of this kind of Crohn's disease and she may be a good candidate for anti-TNF therapy. Her parents verbalized understanding and agreement with the plan.Thank you for allowing me to participate in her care. IBD for Peds Related to Failure T o Thrive Pediatrics IBD Folder Related to Failure T o Thrive Pediatrics Colon Cancer Prevention Related to Failu re To Thrive Pediatrics Assessments Type Assessment Date No Information Patient Care Teams Name Effective Dates (start - stop) Status M embwilly No Information
== END 2022-05-21 16:54 | disposition home or self-care (01) ==
LOC: US 16:56
PROVIDERS: Visit Provider Physician Assistant
DX: N94.6 Dysmenorrhea, unspecified (principal)
CPT/HCPCS: 76830; 76856

== ENCOUNTER 2022-06-07 14:33 | Outpatient (CLI) | payer BC, SELFPAY ==
[2022-06-07 14:52] LABS: Appearance Urine Clear (Clear); Bilirubin Urine Negative (Negative); Blood Urine 1+ (Negative); Color Urine Yellow (Yellow); Glucose Urine Negative (Negative); Ketones Urine 2+ (Negative); Leukocyte Esterase Urine Negative (Negative); Nitrite Urine Negative (Negative); Protein Urine Negative (Negative); Specific Gravity Urine 1.015 (1.000-1.030); Urobilinogen Urine 0.2 (0.2-1.0)
[2022-06-07 15:01] LABS: Bacteria Urine Few; WBC Urine 0-2 (0-5)
--- OUTSIDE RECORDS SUMMARY | 2022-06-13 05:08 | XMS_ITS | Continuity of Care Document ---
:2001 Author Organization [facility] Address [address] [address] [place] [address] Care Team Providers Name Role Phone Endoscopy [place], [place] Unavailable Unavailable Procedures Procedure Date Ugi En Colono Advance Directives Directive Yes / No Effective Date File Name No Information Encounters Encounter Practice Location Reason(s) Diagnoses Date Provider Provide rs Description For Visit Copied on Encounter [facility] No Endoscopy Referring Endoscopy Endoscopy Information -2017 Center Provider : Center [facility], [facility]. Akiko [address] [id number] I, [address] [place], [place], [place], [place], [address] [place] [id number], [id number], [facility] 500, [place]. [facility] tel:[phone] [place], [place], [id number] . tel:[phone] Family History Family Member Type Diagnosis Age At Onset No Information Payers Payer name Insurance type Covered republican ID Authorization(s ) [employer] [place] BL [id number] Social History Type Description Quantity Date Captured [...]
--- OUTSIDE RECORDS SUMMARY | 2022-06-13 05:09 | XMS_ITS | Continuity of Care Document ---
:2001 Author Organization [facility] Address [address] [address] [place] [address] Phone Care Team Providers Name Role Phone [...] Iron Vitamin D; 25 Hydroxy Offic/outpt E&m [facility] [place]-ia 2 Routine Serum Collection Bld Ct; Hg/pltlt Ct Auto/compl Sed Rate, Erythrocyte; Auto Cyanocobalamin C-reactive Prot Comp Metabolic Panel Iron Iron Binding Capacity Vitamin D; 25 Hydroxy Offic/outpt E&m [facility] Mod-ia 2 Colonoscopy Flex; W/bx 1/mx Ugi Endo; W/bx 1/mx Level Iv-surg Path Gross/micro Special Stains; Grp I Microorg Offic/outpt E&m [facility] Routine Serum Collection Bld Ct; Hg/pltlt Ct Auto/compl Sed Rate, Erythrocyte; Auto C-reactive Prot Comp Metabolic Panel Iron Iron Binding Capacity Ag-immunoassay; Hep B Surface Hep B Core Antibody Advance Directives Directive Yes / No Effective Date File Name No Information Encounters Encounter Practice Location Reason(s) Diagnoses Date Provider Provide rs Description For Visit Copied on Encounter [facility] No Information Felix Max Akiko. [facility], [id number], [address] [place], [place] [address], [place], [place], [place] [id number], [place], [place], [place] [id number], tel:+ US. [phone] tel:[phone] [facility] Crohn's disease Steve HERNÁNDEZ Refe peggying [facility] [place] of both small [place]. 3001 Prov ider: Health PA, and lg int w/o 2 [place] Refer ral PO [address] complications [address] [place], [place]. [address], [address], [place], [place], [place], [place], [id number], [id number], [place]. tel: tel:[phone] [facility] [place] Crohn's disease Triston- Felix [facility] of both [facility] MD Wharton. Health PA, and lg int w/o 2 3001 PO Box complications [place] [address], [address], [place] [address], [place], [place], [place] [id number], [place], [place], [place] [id number], tel: US. [phone] tel:[phone] [facility] Crohn's disease Miguelina HERNÁNDEZ Refer ring [facility] [place] of both [facility] Warren. 3001 Prov ider: Health PA, and lg int w/o 2 Rene Refer ral PO [address] [place], [place]. [address], [address], [place], [place], [place], [place], [id number], [id number], [place]. tel: tel:[phone] [facility] Crohn's disease Bethany HERNÁNDEZ Referr [facility] [place] of both [facility] Mushtaq. Provide r: Health PA, and lg int w/o 2 3000 Referr al PO Box complications Rene Self. [address], [address], [place] [address], [place], [place], [place] [id number], [place], [place], [place] [address], tel: US. [phone] tel:[phone] [facility] Crohn's disease [facility] of both small MD Wharton. Health PA, and lg int w/o 2 300 PO Box complications [place] [address], [address], [place] [address], [place], [place], [place] [id number], [place], [place], [place] [address], tel: US. [phone] tel:[phone] [facility] Crohn's disease Dec-2 Jimenez DO Referr ing [facility] [place] of both small 8- Александр. 3001 Prov ider: Health PA, and lg int w/o 1 [place] Refer ral PO Box [address] [place], [place]. [address], [address], [place], [place], [place], [place], [address], [id number], [place]. tel: tel:[phone] [facility] Crohn's disease Oct- [place] [facility] [place] of both small 7- MD Wharton. Health PA, and lg int w/o 300 PO Box complications [place]ene [address], [address], [place] [address], [place], [place], [place] [id number], [place], [place], [place] [id number], tel: US. [phone] tel:[phone] [facility] Crohn's disease Sep- Rank Referri ng [facility] [place] of both small - Estrada. Provide r: Health PA, and lg int w/o 3000 Referr al PO Box complications [place] Self. [address], [address], [place] [address], [place], [place], [place] [id number], [place], [place], [place] [address], tel: US. [phone] tel:[phone] Offic/outpt [facility] Crohn's disease Aug- Felix R idania E&m Estab [facility] [place] Symptoms of both small 3- MD Wharton. Provider: Low-mod Health PA, Clinic or and lg int w/o 300 Referr al PO Box Concerns complications Rene Self. [address], (chief [address], [place] complaint) Ant 500, [place], [place], Previous [place] [id number], History [place], [place], [place] Review [id number], tel: (chief [place]. [phone] complaint) tel:[phone] [facility] Crohn's disease Sep- Teagarden Refer ring [facility] [place] of both small 0-202 DO Cheng. Provid er: Health PA, and lg int w/o 1 3001 Referr al PO Box complications Rene Self. [address], [address], [place] [address], [place], [place], [place] [id number], [place], [place], [place] [address], tel:+ US. [phone] tel:[phone] [facility] Crohn's disease Jul-0 [place] [facility] [place] of both small MD Wharton. Health PA, and lg int w/o 1 3001 PO Box complications [place] [address], [address], [place] [address], [place], [place], [place] [address], [place], [place], [place] [address], tel:+ US. [phone] tel:[phone] [facility] GI Crohn's disease Hanouneh Referr ing [facility] [place] Symptoms of both small MD Provide r: Health PA, or and lg int w/o 1 White. Refer ral PO Box Concerns complications 3001 Self. [address], (chief [place] complaint) Street NE, [place], [place], [address], [id number], [place], [place], tel:+ [phone] [place]. tel:[phone] [facility] Crohn's disease [place] Re ferring Dig[facility]ive of both small MD Wharton. Provid er: Health PA, and lg int w/o 1 3001 Referr al PO Box complications [place] Self. [address], [address], [place] [address], [place], [place], [place] [id number], [place], [place], [place] [address], tel:+ US. [phone] tel:[phone] [facility] Crohn's disease March- Rank Referri ng [facility] [place] of both small [place]. Provide r: Health PA, and lg int w/o 1 3001 Referr al PO Box complications Rene Self. [address], [address], [place] [address], [place], [place], [place] [id number], [place], [place], [place] [address], tel:+ US. [phone] tel:[phone] [facility] No Information [place] [facility] [place] MD Wharton. Health PA, 1 [address]001 [address]ene [address], [address], [place] [address], [place], [place], [place] [id number], [place], [place], [place] [address], tel: US. [phone] tel:[phone] [facility] Crohn's disease Teag[place] Refer ring [facility] [place] of both small DO Cheng. Provid er: Health PA, and lg int w/o 1 3001 Referr al PO Box complications [place] Self. [address], [address], [place] [address], [place], [place], [place] [id number], [place], [place], [place] [address], tel: US. [phone] tel:[phone] [facility] Crohn's disease Alec HERNÁNDEZ Refjerry rring [facility] [place] of both [place]. Provide r: Health PA, and lg int w/o 3001 Referr al PO Box complications Rene Self. [address], [address], [place] [address], [place], [place], [place] [id number], [place], [place], [place] [address], tel:+ US. [phone] tel:[phone] [facility] Crohn's disease [place] Re ferring Dig[facility]ive of both small MD Mackenzie. Provid er: Health PA, and lg int w/o 3001 Referr al PO Box complications [place]ene Self. [address], [address], [place] [address], [place], [place], [place] [id number], [place], [place], [place] [address], tel: US. [phone] tel:[phone] [facility] Crohn's disease [place] [facility] [place] of both small MD Wharton. Health PA, Clinic and lg int w/o 1 3001 PO Box complications [place] [address], [address], [place] [address], [place], [place], [place] [id number], [place], [place], [place] [address], tel:+ US. [phone] tel:[phone] [facility] Crohn's disease Dec-0 Benji HERNÁNDEZ Refe rring [facility] [place] of both small 2- Rudy. Provide r: Health PA, and lg int w/o 0 3001 Referr al PO Box complications [place]ene Self. [address], [address], [place] [address], [place], [place], [place] [id number], [place], [place], [place] [address], tel:+ US. [phone] tel:[phone] [facility] No Information Dec-0 Benji HERNÁNDEZ Digestive [place]. Health PA, 0 3001 [address] [address], [address], [place] [address], [place], [place], [place] [id number], [place], [place], [place] [address], tel:+ US. [phone] tel:[phone] [facility] Crohn's disease Aug-0 Benji HERNÁNDEZ Refe rring [facility] [place] of both small 7 Rudy. Provide r: Health PA, and lg int w/o 0 3001 Referr al PO Box complications Rene Self. [address], [address], [place] [address], [place], [place], [place] [id number], [place], [place], [place] [address], tel:+ US. [phone] tel:[phone] [facility] Crohn's disease Nikunj HERNÁNDEZ Refer ring [facility] [place] of both small 0-202 Edilberto. Provide r: Health PA, and lg int w/o 0 3001 Referr al PO Box complications Rene Self. [address], [address], [place] [address], [place], [place], [place] [address], [place], [place], [place] [address], tel:+ US. [phone] tel:[phone] [facility] Crohn's disease Jun- Felix washburning Digestive of both small 0-202 MD Wharton. Provid er: Health PA, and lg int w/o 0 3001 Referr al PO Box complications [place] Self. [address], [address], [place] [address], [place], [place], [place] [id number], [place], [place], [place] [address], tel: US. [phone] tel:[phone] Established [facility] Crohn's disease May- [place] R eferring Level 4 or [facility] [place] Symptoms of both small - MD Wharton . Provider: 25-39 min Health PA, Clinic or and lg int w/o 0 3001 Refe rral PO Box Concerns complications Rene Self. [address], (chief Street NE, [place] complaint) [address] 500, [place], [place], [place] [id number], [place], [place], [place] [address], tel: US. [phone] tel:[phone] [facility] Crohn's disease Triston- Alec HERNÁNDEZ Refe rring [facility] [place] of both small - Teo. Provide r: Health PA, and lg int w/o 0 3001 Referr al PO Box complications Rene Self. [address], [address], [place] [address], [place], [place], [place] [id number], [place], [place], [place] [address], tel: US. [phone] tel:[phone] [facility] Crohn's disease Feb- America HERNÁNDEZ Refer ring [facility] [place] of both small 0-202 Russell. Provider : Health PA, and lg int w/o 0 3001 Referr al PO Box complications [place] Self. [address], [address], [place] [address], [place], [place], [place] [id number], [place], [place], [place] [address], tel: US. 1016469 tel:[phone] [facility] Crohn's disease Apr-2 Felix Perez ferring Digestive of both small 0-202 MD Wharton. Provid er: Health PA, and lg int w/o 0 3001 Referr al PO Box complications Rene Self. [address], [address], [place] [address], [place], [place], [place] [id number], [place], [place], [place] [address], tel:[phone] US. [phone] tel:[phone] [facility] Crohn's disease Estefany HERNÁNDEZ Refe rring [facility] [place] of both small [facility]. Provider : Health PA, and lg int w/o 0 3001 Referr al PO Box complications [place] Self. [address], [address], [place] [address], [place], [place], [place] [id number], [place], [place], [place] [address], tel:+ US. [phone] tel:[phone] [facility] No Information [place] [facility] [place] MD Wharton. Health PA, Clinic 0 3001 [address] Box [place] [address], [address], [place] [address], [place], [place], [place] [address], [place], [place], [place] [address], tel: US. [phone] tel:[phone] [facility] Crohn's disease [place] [facility] of both small MD Wharton. Health PA, and lg int w/o 0 3001 PO Box complications [place] [address], [address], [place] [address], [place], [place], [place] [address], [place], [place], [place] [address], tel:+ US. [phone] tel:[phone] [facility] [place] [facility] [place] of both small MD Wharton. Health PA, Clinic and lg int w/o 0 3001 PO Box complications [place] [address], [address], [place] [address], [place], [place], [place] [address], [place], [place], [place] [address], tel: US. [phone] tel:[phone] [facility] Crohn's disease Kalyan HERNÁNDEZ Ref erring Digestive of both small 3-201 Emma. Provider : Health PA, and lg int w/o 9 3001 Referr al PO Box complications [place] Self. [address], [address], [place] [address], [place], [place], [place] [id number], [place], [place], [place] [address], tel: US. [phone] tel:[phone] [facility] No Information Felix Digestive 2-201 MD Wharton. Health [place], 9 [address]001 [address] [address], [address] [place], [facility] Ant 500, [place], [place], [place] [address], [place], [place], [place] [address], tel: US. [phone] tel:[phone] Offic/outpt [facility] Crohn's disease [place] E&m Estab [facility] [place] Symptoms of both small 8-201 MD Wharton. [facility] 2 [facility], Clinic or and lg int w/o 3001 PO Box Concerns complications [place]ene [address], (chief [address] NE, [facility] complaint) Ant 500, [place], [place], [place] [id number], [place], [place], [place] [address], tel: US. 7170300 tel:[phone] [facility] Crohn's disease Felix Refer ring Digestive [facility] of both small 3-201 MD Wharton. Prov ider: Health [place], [place] and lg int w/o 300 Aayush [place], [address], hn's disease of [address] NE, [address] [place] [address] both small and [address], [place], [place], lg int w/o [place] [address], [id number], complicationsCro s, [place], [place] en [place] hn's disease of [id number], Luque y, tel: both small and [place]. [place], 55 416. [id number] lg int w/o tel: tel:[phone] Offic[facility] Cro[facility]'s disease Felix emerson E&m Estab [facility] [place] Symptoms of both small 1-201 MD Wharton. Provider: [facility] 2 [facility], Clinic or and lg int w/o 8 3001 Refer ral PO Box Concerns complications Rene Self. [address], (chief [address] NE, [facility] complaint) Ant 500, [place], [place], [place] [address], [place], [place], [place] [address], tel: US. [phone] tel:[phone] [facility]eds Clinic Crohn's disease [place] Digestive of both small 3-201 MD Akiko. Health PA, and lg int w/o 8 3001 PO Box complications [place] [address], [address], [facility] Ant 500, [place], [place], [place] [address], [place], [place], [place] [address], tel: US. [phone] tel:[phone] Offic/outpt [facility] GI Crohn's disease [place] Referring E&m Estab Digestive Symptoms of both small 0-201 MD Akiko. Pro vider: Mod-hi 2 Health PA, or and lg int w/o 300 Juan Acrlos a PO Box Concerns complications [facility] , [address], (chief [address], [address] [facility] complaint) Ant 500, [place], [place], [place] [address], [address], [place], [place], [place] [address], [place], tel: [place], [address]. [address] tel: tel:[phone] Offic/outpt [facility] Crohn's disease [place] E&m Estab Digestive Symptoms of both small 2-201 MD Akiko. Mod-hi 2 Health PA, or and lg int w/o 300 PO Box Concerns complications [place] [address], (chief [address] NE, [place] complaint) Ant 500, [place], [place], [place] [address], [place], [place], [place] [address], tel: US. [phone] tel:[phone] [facility] Pediatric Crohn's disease [place] [facility] of both small 6-201 MD Akiko. Health PA, and lg int w/o 3001 PO Box complications [place] [address], [address], [facility] Ant 500, [place], [place], [place] [address], s, [place], [place] [address], tel: US. [phone] tel:[phone] [facility] Pediatric Crohn's disease [place] [facility] of both small 8-201 MD Wharton. Health PA, and lg int w/o 6 3001 PO Box complications [place]ene [address], [address], [place] [address], [place], [place], [place] [address], s, [place], [place] [address], tel: US. 0607572 tel:[phone] Offic/outpt [facility] Pediatric GI Crohn's disease [place] E&m Estab Dig[facility]ive Clinic Symptoms of both small 0-201 MD Wharton. Mod-hi 4 Health PA, or and lg int w/o 6 3001 PO Box Concerns complications Rene [address], (chief [address] NE, [place] complaint) Ant 500, [place], [place], [place] [address], s, [place], [place] [address], tel: US. [phone] tel:[phone] [facility] [place] Dig[facility] of both small 5-201 MD Wharton. Health PA, and lg int w/o 6 3001 PO Box complications [place] [address], [address], [place] [address], [place], [place], [place] [address], s, [place], [place] [address], tel: US. [phone] tel:[phone] [facility] Pediatric Crohn's disease [place] [facility] of both small 9-201 MD Wharton. Health PA, and large 5 3001 PO Box intestine [place] [address], [address], [place] complications Ant 500, [place], [place], [place] [address], s, [place], [place] [address], tel: US. 0472968 tel:[phone] Offic/outpt [facility] Pediatric GI Crohn's disease [place] R eferring E&m Estab Digestive Clinic Symptoms of both small 9-201 MD Wharton. Pro vider: Mod-hi 2 Health PA, or and large 5 3001 Referral PO Box Concerns intestine Rene Self. [address], (chief without Street NE, [place] complaint) complications [address] 500, [place], [place], [place] [address], [place], [place], [place] [address], tel: US. 3983017 tel:[phone] [facility] No Information [place] Digestive 0-201 MD Wharton. Health PA, 5 3001 [address] R[place] [address], [address], [place] [address], [place], [place], [place] [id number], s, [place], [place] [address], tel: US. [phone] tel:[phone] [place] Pediatric Crohn's [facility]estive Clinic Small/large 0-201 MD Wharton. Health PA, Intestine 5 3001 [address] [address], [address], [place] [address], [place], [place], [place] [address], s, [place], [place] [address], tel: US. 9196037 tel:[phone] Offic/outpt [facility] Crohn's [place] E&m [facility]estive Clinic Symptoms Small/large 6-201 MD Wharton. Mod-hi 2 Health PA, or IntestineCrohn's 5 3001 PO Box Concerns disease of both [place] [address], (chief small and large Street NE, [place] complaint) intestine Ant 500, [place], [place], without [place] [address], complications s, [place], [place] [address], tel: US. 8073479 tel:[phone] Offic/outpt [facility] Crohn's [place] E&m [facility]estive Clinic Symptoms Small/large 4-201 MD Wharton. Mod-hi 2 Health PA, or Intestine 5 3001 PO Box Concerns Rene [address], (chief [address] NE, [place] complaint) Ant 500, [place], [place], [place] [id number], [place], [place], [place] [address], tel: US. [phone] tel:[phone] [facility] To [place] HERNÁNDEZ Digestive Endoscopy Thrive 3-201 Terra. [facility], Miranda PediatricsFailur 5 3001 PO [address] e To Thrive [place] [address], [address], Mayai al Enteritis Ant 500, [place], [place], NosGastritisFail [place] [id number], ure To Thrive [place], [place], [place] Pediatrics [id number], tel:+2 US. 7543785 tel:[phone] Offic/outpt [facility] Failure To [facility] Symptoms Thrive 9-201 MD Wharton. [facility], ut Pediatrics 5 3001 PO Box Concerns Rene [address], (chief Street NE, [place] complaint) Ant 500, [place], [place], [place] [address], [place], [place], [place] 9[address], tel:+ US. [phone] tel:[phone] Family History Family Member Type Diagnosis Age [...] . ; Source: or older [employer]ix Quad 7840-1638 Other Provider meningococcal oligosaccharide administered No te: MIIC bi-directional (groups A, C, Y and W-135) inter face ; Source: Other diphtheria toxoid conjugate Anna stry vaccine (MCV4O) tetanus toxoid, reduced administered Note: NE IC bi-directional diphtheria toxoid, and acellular interface ; Source: Other pertussis vaccine, adsorbed Anna stry varicella virus vaccine administered Note: NE IC bi-directional interface ; Sour ce: Other [...] Other Registry varicella virus vaccine administered Note: NE IC bi-directional interface ; Sour ce: Other [...] Registry Payers Payer name Insurance type Covered republican ID Authorization(s ) Blue [facility] [id number] [facility] CI Remicade Social History Type Description Quantity [...] unintentional weight loss. She is studying at [employer]. She is in her sophomore year, and very busy with school (behavior science sydni benites, art minor) and with the [employer]. S he recently had to quit a job at an [employer] because she was overwhelmed with work. [...] will be taking a family trip to [facility] in mid June, June 17 to , [...] w/o complications Children[facility]. She continues on an ddwpz-reavw-bltn infusion cycle.2. I would like to see her for followup in six months. I wished her well in her adventures in [place].Thank you for allowing me to participate in [...] treatment for her Crohn's disease over the prison. However, in some children with just a ehit-gh-fmfvlnsj activity of the terminal ileum, they do [...]
== END 2022-06-07 14:34 | disposition home or self-care (01) ==
LOC: NFLDREF 14:34
PROVIDERS: Visit Provider Physician Assistant
DX: R30.0 Dysuria (principal); N94.6 Dysmenorrhea, unspecified
CPT/HCPCS: 81003; 81015; 87086

== ENCOUNTER 2023-11-13 09:51 | Outpatient (CLI) | payer BC, SELFPAY ==
--- OUTSIDE RECORDS SUMMARY | 2023-11-13 10:03 | XMS_ITS | Continuity of Care Document ---
Author Name Unknown Organization [facility] Address [address] [address] [place] [address] Care Team Providers Care Cuff Folder Name Role Phone [place], [place] Unavailable Unav ailable Procedures Procedure Date Ugi En Colono Advance Directives Directive Yes / No Effective Date File Name No Information Encounters Encounter Description Practice Location Reason(s) For Visit Diagnoses Date Provider Providers Copied on Encounter [facility], [address] [address], [place], [place], [id number], [facility] [place] No Information [facility]. [address] [address], [place], [place], [id number], . tel:[phone] Referring Provider: Akiko Washington MD I, [address] [address], [place], [address] . tel:[phone] Family History Family Member Type Diagnosis Age At Onset No Information Payers Payer name Insurance type Covered republican ID Authoriza clara(s) [employer] [facility] [id number] Social History Type Description Quantity Date Captured Comments Sex Female Smoking Status No Information Chief Complaint And Reason For Visit No Information Reason For Referral Reason For Referral No Information History Of Present Illness Encounter Date Complaint History Of Prese nt Illness No Information Functional Status Date Functional Assessmen t No Information Instructions Date Instruction Additional Infor mation No Information Assessments Type Assessment Date No Information Patient Care Teams Name Effective Dates (start - stop) Status Members No Information
--- OUTSIDE RECORDS SUMMARY | 2023-11-13 10:04 | XMS_ITS | Encounter Summary ---
Author Name Unknown Organization [facility] Address [address] [place] [address] Care Team Providers Care Strapper Name Role Phone Unavailable Primary Care Provider Unavailabl e Reason for Visit * Appointment Request (Routine) - Closed Specialty Diagnoses / Procedures Referred By George preston Referred To Contact Occupational Medicine Referral ID Status Reason Start Date Expiration Date Visits Re quested Visits Authorized [id number] Closed 07/22/2023 07/21/2024 1 1 Encounter Details Date Type Department Care Team (Latest Contact Info) Description 08/06/2023 1:30 PM CDT Clinical Support Department of Occupational Medicine in [place], [place] [address] [facility] [facility] [id number] Special Screening For Other Condition (Primary Dx) Social History Tobacco Use Types Packs/Day Years Used Date Smoking Tobacco: Never Assessed Nutrition Answer Date Recorded Nutrition: EVOO Fat Source Unknown 05/07 Nutrition: Servings of Fruits/Vegetables per Day Not on file 05/07/2023 Dental Answer Date Recorded Dental: Regular Dentist Unknown 05/07/20 23 Sex and Gender Information Value Date Recorded Sex Assigned at Not on file Gender Identity Not on file Sexual Orientation Not on file documented as of this encounter Progress Notes * Monika Faria, C.M.A. - 08/06/2023 1:30 PM CDT Employment related drug screen. documented in this encounter Plan of Treatment Not on file documented as of this encounter Visit Diagnoses Diagnosis Special Screening For Other Condition- Primary documented in this encounter
--- OUTSIDE RECORDS SUMMARY | 2023-11-13 10:04 | XMS_ITS | Referral Summary ---
Author Name Unknown Organization [facility] Address [address] [place] [address] Care Team Providers Care Rewind Operator Name Role Phone Unavailable Primary Care Provider Unavailabl e Source Comments Patient records contain information from all sites at [facility]. For routine questions regarding patient records, call [phone] during business hours, M-F 8:00 AM - 5:00 PM Central Time. Record requests for emergency care only can be directed to [phone] at any time.[facility] Allergies No known active allergies Medications Medication Sig Dispensed Refills Start Date End Date Status medroxyPROGESTERone (DEPO-SUBQ PROVERA) 104 mg/0.65 mL injection Inject 104 mg under the skin once. 0 Active cetirizine (ZyrTEC) 5 mg tablet Take 5 mg by mouth daily. 0 Active Active Problems No known active problems Social History Tobacco Use Types Packs/Day Years [...] on file Sexual Orientation Not on file Last Filed Vital Signs Vital Sign Reading Time Taken Comments Blood Pressure 108/60 05/07/2023 11:32 AM CDT Pulse 95 05/07/2023 11:32 AM CDT Temperature 36.3 ??C (97.3 ??F) 05/07/2023 11:32 AM C DT Respiratory Rate 18 05/07/2023 11:32 AM CDT Oxygen Saturation 100% 05/07/2023 11:32 AM CDT Inhaled Oxygen Concentration - - Weight 54.7 kg (120 lb 9.5 oz) 05/07/2023 11:32 AM CDT Height - - Body Mass Index - - Plan of Treatment Not on file
--- OUTSIDE RECORDS SUMMARY | 2023-11-13 10:04 | XMS_ITS ---
Author Name Unknown Organization [facility] Address [address] [place] [address] Care Team Providers Care Network Director Name Role Phone Unavailable Unavailable Unavailable Surgery Details Not on file Complications Check Surgery Details section. Procedure Estimated Blood Loss Check Surgery Details section. Procedure Findings Check Surgery Details section. Procedure Specimens Taken Check Surgery Details section.
--- OUTSIDE RECORDS SUMMARY | 2023-11-13 10:04 | XMS_ITS | Encounter Summary ---
Author Name Unknown Organization [facility] Address [address] [place] [address] Care Team Providers Care Senior Front End Web Developer Name Role Phone Unavailable Primary Care Provider Unavailabl e Reason for Visit * Appointment Request (Routine) - Closed Specialty Diagnoses / Procedures Referred By George preston Referred To Contact Occupational Medicine Referral ID Status Reason Start Date Expiration Date Visits Re quested Visits Authorized [id number] Closed 07/24/2023 07/23/2024 1 1 Encounter Details Date Type Department Care Team (Late st Contact Info) Description 08/06/2023 1:48 PM CDT - 08/06/2023 11:59 PM CDT Hospital Encounter Department of Laboratory Medicine, [facility], in [place], [place] [address] [place] [phone] Mele Peguero M.D., M.P.H. [address] [place] [phone] Discharge Disposition: Home or Self Care Social History Tobacco Use Types Packs/Day Years Used Date Smoking Tobacco: Never Assessed Nutrition Answer Date Recorded Nutrition: EVOO Fat Source Unknown 05/07 Nutrition: Servings of Fruits/Vegetables per Day Not on file 05/07/2023 Dental Answer Date Recorded Dental: Regular Dentist Unknown 05/07/20 Sex and Gender Information Value Date Recorded Sex Assigned at Not on file Gender Identity Not on file Sexual Orientation Not on file documented as of this encounter Medications at Time of Discharge Medication Sig Dispensed Refills Start Date End Date cetirizine (ZyrTEC) 5 mg tablet Take 5 mg by mouth daily. 0 medroxyPROGESTERone (DEPO-SUBQ PROVERA) 104 mg/0.65 mL injection Inject 104 mg under the skin once. 0 documented as of this encounter Plan of Treatment Not on file documented as of this encounter Visit Diagnoses Not on filedocumented in this encounter
--- OUTSIDE RECORDS SUMMARY | 2023-11-13 10:04 | XMS_ITS | Clinical Summary ---
Author Name Unknown Organization [facility] Address [address] [place] [address] Care Team Providers Care Rubber Down Name Role Phone Unavailable Primary Care Provider Unavailabl e Source Comments Patient records contain information from all sites at [facility]. For routine questions regarding patient records, call [phone] during business hours, M-F 8:00 AM - 5:00 PM Central Time. Record requests for emergency care only can be directed to [phone] at any time.[facility] Allergies No known active allergies Medications [...] Mass Index - - Plan of Treatment Health Maintenance Due Date Last Done Comments Cervical Cancer Screening 2001 Chlamydia and Gonorrhea Screening 2001 HIV Screening 2001 Hepatitis C Screening 2001 Depression Screening (Annual PHQ-2) 11/04/2022 COVID-19 Vaccine ( season) 2023 08/22/2022, 11/15/2021, 03/04/2021, Additional history exists Influenza Vaccine (#1) 2023 , 08/18/2020, 10/02/2019, Additional history exists DTaP,Tdap,and Td Vaccines (7 - Td or Tdap) 06/11/2024 06/11/2014, 01/06/2007, 03/08/2003, Additional history exists Hepatitis B Vaccines Completed 07/27/2002, 04/27/2002, 01/05/2002 Pneumococcal vaccine (0-64 years) Aged Out 11/16/2002, 07/27/2002, 03/04/2002, Additional history exists No longer eligible based on patient's age to complete this topic HPV Vaccines Completed 07/19/2018, 04/2017, 05/08/2016, Additional history exists Meningococcal Vaccine Completed 06/05/2019, 014
--- OUTSIDE RECORDS SUMMARY | 2023-11-13 10:04 | XMS_ITS | Continuity of Care Document ---
Author Name Unknown Organization [facility] Address [address] [address] [place] [address] Phone Care Team Providers Care Test Architect Name Role Phone Mushtaq Sims MD Unavailable Unavailable Allergies, Adverse Reactions, Alerts Substance Reaction Status Criticality No Known Allergies Active No Inform ation Medications Medication Instructions Dosage Effective Dates (start - stop) Status Comments Tylenol 325 mg tablet Take Tylenol 650mg PO half hour before infusion - Active Remicade 100 mg intravenous solution Administer Remicade 7mg/kg every eight weeks, infuse by IV route - Active Depo-SubQ provera 104 104 mg/0.65 mL subcutaneous syringe inject 0.65 milliliter by subcutaneous route every 3 months once 104 MG - Active Tylenol 325 mg tablet Take Tylenol 650mg PO half hour before infusion - Active Remicade 100 mg intravenous solution Administer Remicade 7mg/kg every eight weeks, infuse by IV route - Active Claritin-D 24 Hour 10 mg-240 mg tablet,extended release take 1 tablet by oral route as needed - Active Tylenol 325 mg tablet Take Tylenol 650mg PO half hour before infusion - Active Remicade 100 mg intravenous solution Administer Remicade 7mg/kg every eight weeks, infuse by IV route - Active Vitamin D3 1,000 unit capsule take 1 capsule by oral route every day 1 capsule - Active Ventolin HFA 90 mcg/actuation aerosol inhaler inhale 2 puff by inhalation route every 4 - 6 hours as needed - Active multivitamin tablet take 1 tablet by ora l route every day with food - Active Procedures Procedure Date Remicade Per 10 Mg IV Infusion Up To 1 Hour Offic/outpt E&m Estab Low-mod IV Infusion Up To 1 Hour Remicade Per 10 Mg IV Infusion Up To 1 Hour Remicade Per 10 Mg Remicade Per 10 Mg Remicade Per 10 Mg IV Infusion Up To 1 Hour Routine Serum Collection Remicade Per 10 Mg Remicade Per 10 Mg IV Infusion Up To 1 Hour Remicade Per 10 Mg Remicade Per 10 Mg IV Infusion Up To 1 Hour Remicade Per 10 Mg Remicade Per 10 Mg IV Infusion Up To 1 Hour Remicade Per 10 Mg Remicade Per 10 Mg IV Infusion Up To 1 Hour Offic/outpt E&m Estab Low-mod IV Infusion Up [...] Serum Collection Bld Ct; Hg/pltlt Ct Auto/compl 21 Sed Rate, Erythrocyte; Auto C-reactive Prot Comp [...] Serum Collection Bld Ct; Hg/pltlt Ct Auto/compl 20 Sed Rate, Erythrocyte; Auto Comp Metabolic Panel Cyanocobalamin C-reactive Prot Established Level 4 or 25-39 min 2019 IV Infusion Up To 1 Hour Remicade Per 10 Mg IV Infusion Up To 1 Hour Remicade Per 10 Mg Routine Serum Collection Hepatic Function Panel Bld Ct; Hg/pltlt Ct Auto/compl 20 IV Infusion Up To 1 Hour Remicade Per 10 Mg Small Bowel PillCam Capsule 1st Day Offic/outpt E&m Estab Mod-hi 2 19 Colonoscopy Flex; W/bx 1/mx Ugi Endo; W/bx 1/mx Level Iv-surg Path Gross/micro 18 Offic/outpt E&m Estab Mod-hi 2 18 Offic/outpt E&m Estab Mod-hi 2 17 Offic/outpt E&m Estab Mod-hi 2 17 Offic/outpt E&m Estab Mod-hi 4 16 Routine Serum Collection Bld Ct; Hg/pltlt Ct Auto/compl 16 Sed Rate, Erythrocyte; Auto C-reactive Prot Comp Metabolic Panel Vitamin D; 25 Hydroxy Offic/outpt E&m Estab Mod-hi 2 15 Routine Serum Collection Bld Ct; Hg/pltlt Ct Auto/compl 15 Sed Rate, Erythrocyte; Auto C-reactive Prot Comp Metabolic Panel Iron Vitamin D; 25 Hydroxy Routine Serum Collection Bld Ct; Hg/pltlt Ct Auto/compl 15 Sed Rate, Erythrocyte; Auto C-reactive Prot Comp Metabolic Panel Iron Vitamin D; 25 Hydroxy Offic/outpt E&m Estab Mod-hi 2 15 Routine Serum Collection Bld Ct; Hg/pltlt Ct Auto/compl 15 Sed Rate, Erythrocyte; Auto Cyanocobalamin C-reactive Prot Comp Metabolic Panel Iron Iron Binding Capacity Vitamin D; 25 Hydroxy Offic/outpt E&m Estab Mod-hi 2 15 Colonoscopy Flex; W/bx /mx Ugi Endo; W/bx /mx Level Iv-surg Path Gross/micro 15 Special Stains; Grp I Microorg 15 Offic/outpt E&m New Mod-hi Routine Serum Collection Bld Ct; Hg/pltlt Ct Auto/compl 15 Sed Rate, Erythrocyte; Auto C-reactive Prot Comp Metabolic Panel Iron Iron Binding Capacity Ag-immunoassay; Hep B Surface 5 Hep B Core Antibody Advance Directives Directive Yes / No Effective Date File Name No Information Encounters Encounter Description Practice Location Reason(s) For Visit Diagnoses Date Provider Providers Copied on Encounter [facility] SARAH DONOV[address] [address], [place], [id number], [place] tel:[phone] [facility] Crohn's disease of both small and lg int w/o complications 3 Bethany Landin. [address], [id number], [place]. tel:[phone] Referring Provider: Referral Self, USE FOR SELF REFERRALS. [facility] [address] [address], [place], [id number], [place] tel:[phone] [facility] [place] Crohn's disease of both small and lg int w/o complications 3 Felix Wharton. [address] [facility], [facility] [address], [address], [place]. tel:[phone] Offic/outpt E&m Estab Low-mod [facility], [address] [address], [place], [id number], [place] tel:[phone] [facility] GI Symptoms or Concerns (chief complaint) Crohn's disease of both small and lg int w/o complications 3 Felix Wharton. [address] [facility], [facility] [address], [place], [address], [place]. tel:[phone] Referring Provider: Referral Self, USE FOR SELF REFERRALS. [facility], [address] [address], [place], [address], [place] tel:[phone] [facility] [place] Crohn's disease of both small and lg int w/o complications 3 Bethany Landin. [address] [facility], [facility] [address], [address], [place]. tel:[phone] Referring Provider: Referral Self, USE FOR SELF REFERRALS. [facility], [address] [address], [place], [id number], [place] tel:[phone] [facility] [place] Crohn's disease of both small and lg int w/o complications 3 Felix Wharton. [address] [facility], [facility] [address], [address], [place]. tel:[phone] [facility], [address] [address], [place], [address], [place] tel:[phone] [facility] [place] Crohn's disease of both small and lg int w/o complications 3 Steve Grey. [address] [facility], [facility] [address], [address], [place]. tel:[phone] Referring Provider: Referral Self, USE FOR SELF REFERRALS. [facility], [address] [address], [place], [address], [place] tel:[phone] [facility] [place] Crohn's disease of both small and lg int w/o complications 3 Felix Wharton. [address] [facility], [facility] [address], [place], [address], [place]. tel:[phone] [facility], [address] [address], [place], [address], [place] tel:[phone] [facility] [place] Crohn's disease of both small and lg int w/o complications 3 Bucky Rooney. [address] [facility], [facility] [address], [place], [address], [place]. tel:[phone] Referring Provider: Referral Self, USE FOR SELF REFERRALS. [facility], [address] [address], [place], [address], [place] tel:[phone] [facility] [place] Crohn's disease of both small and lg int w/o complications 3 Felix Wharton. [address] [facility], [facility] [address], [place], [address], [place]. tel:[phone] [facility], [address] [address], [place], [address], [place] tel:[phone] [facility] Crohn's disease of both small and lg int w/o complications 3 Felix Wharton. [address] [facility], [facility] [address], [place], [address], [place]. tel:[phone] Referring Provider: Referral Self, USE FOR SELF REFERRALS. [facility], [address] [address], [place], [address], [place] tel:[phone] [facility] [place] Crohn's disease of both small and lg int w/o complications 3 Lucina Valencia. [address] [facility], [facility] [address], [place], [place], [address], [place]. tel:[phone] Referring Provider: Referral Self, USE FOR SELF REFERRALS. [facility], [address] [address], [place], [address], [place] tel:[phone] [facility] [place] Crohn's disease of both small and lg int w/o complications 3 Felix Wharton. [address] [facility], [facility] [address], [place], [address], [place]. tel:[phone] [facility], [address] [address], [place], [address], [place] tel:[phone] [facility] [place] No Information 3 Felix Wharton. [address] [facility], [facility] [address], [address], [place]. tel:[phone] [facility], [address] [address], [place], [address], [place] tel:[phone] [facility] [place] Crohn's disease of both small and lg int w/o complications 3 Bethany Landin. [address] [facility], [facility] [address], [place], [address], [place]. tel:[phone] Referring Provider: Referral Self, USE FOR SELF REFERRALS. [facility], [address] [address], [place], [address], [place] tel:[phone] [facility] [place] Crohn's disease of both small and lg int w/o complications 3 Felix Wharton. [address] [facility], [facility] [address], [place], [address], [place]. tel:[phone] [facility], [address] [address], [place], [address], [place] tel:[phone] [facility] [place] Crohn's disease of both small and lg int w/o complications 3 Bethany Landin. [address] [facility], [facility] [address], [address], [place]. tel:[phone] Referring Provider: Referral Self, USE FOR SELF REFERRALS. [facility], [address] [address], [place], [address], [place] tel:[phone] [facility] Crohn's disease of both small and lg int w/o complications 3 Felix Wharton. [address] [facility], [facility] [address], [place], [address], [place]. tel:[phone] Referring Provider: Referral Self, USE FOR SELF REFERRALS. [facility], [address] [address], [place], [id number], [place] tel:[phone] [facility] [place] Crohn's disease of both small and lg int w/o complications 3 Felix Wharton. [address] [facility], [facility] [address], [place], [address], [place]. tel:[phone] [facility], [address] [address], [place], [address], [place] tel:[phone] [facility] Crohn's disease of both small and lg int w/o complications 2 Tony Blair. [address] [facility], [facility] [address], [place], [address], [place]. tel:[phone] Referring Provider: Referral Self, USE FOR SELF REFERRALS. [facility], [address] [address], [place], [address], [place] tel:[phone] [facility] [place] Crohn's disease of both small and lg int w/o complications 2 Felix Wharton. [address] [facility], [facility] [address], [address], [place]. tel:[phone] Offic/outpt E&m Estab Low-mod [facility], [address] [address], [place], [address], [place] tel:[phone] [facility] GI Symptoms or Concerns (chief complaint) Crohn's disease of both small and lg int w/o complications 2 Felix Wharton. [address] [facility], [facility] [address], [place], [address], [place]. tel:[phone] Referring Provider: Referral Self, USE FOR SELF REFERRALS. [facility], [address] [address], [place], [address], [place] tel:[phone] [facility] [place] Crohn's disease of both small and lg int w/o complications 2 Bucky Rooney. [address] [facility], [address], [address], [place]. tel:[phone] Referring Provider: Referral Self, USE FOR SELF REFERRALS. [facility], [address] [address], [place], [address], [place] tel:[phone] [facility] [place] Crohn's disease of both small and lg int w/o complications 2 Steve Grey. [address] [facility], [address], [address], [place]. tel:[phone] Referring Provider: Referral Self, USE FOR SELF REFERRALS. [facility], [address] [address], [place], [address], [place] tel:[phone] [facility] [place] Crohn's disease of both small and lg int w/o complications 2 Steve Grey. [address] [facility], [address], [address], [place]. tel:[phone] Referring Provider: Referral Self, USE FOR SELF REFERRALS. [facility], [address] [address], [place], [address], [place] tel:[phone] [facility] Crohn's disease of both small and lg int w/o complications 2 Felix Wharton. [address] [facility], [facility] [address], [place], [address], [place]. tel:[phone] [facility], [address] [address], [place], [address], [place] tel:[phone] [facility] [place] Crohn's disease of both small and lg int w/o complications 2 Miguelina Kelley. [address], [address], [place]. tel:[phone] Referring Provider: Referral Self, USE FOR SELF REFERRALS. [facility], [address] [address], [place], [address], [place] tel:[phone] [facility] [place] Crohn's disease of both small and lg int w/o complications 2 Bethany Landin. [address], [address], [place]. tel:[phone] Referring Provider: Referral Self, USE FOR SELF REFERRALS. [facility], [address] [address], [place], [address], [place] tel:[phone] [facility] [place] Crohn's disease of both small and lg int w/o complications 2 Felix Wharton. [address], [address], [place]. tel:[phone] [facility], [address] [address], [place], [address], [place] tel:[phone] [facility] [place] Crohn's disease of both small and lg int w/o complications 1 Tony Blair. [address], [address], [place]. tel:[phone] Referring Provider: Referral Self, USE FOR SELF REFERRALS. [facility], [address] [address], [place], [address], [place] tel:[phone] [facility] [place] Crohn's disease of both small and lg int w/o complications 1 Felix Wharton. [address], [address], [place]. tel:[phone] [facility], [address] [address], [place], [address], [place] tel:[phone] [facility] [place] Crohn's disease of both small and lg int w/o complications 1 Carmencita Dorado. [address] [facility], [facility] [address], [place], [address], [place]. tel:[phone] Referring Provider: Referral Self, USE FOR SELF REFERRALS. Offic/outpt E&m Estab Low-mod [facility], [address] [address], [place], [id number], [place] tel:[phone] [facility] GI Symptoms or Concerns (chief complaint) Previous History Review (chief complaint) Crohn's disease of both small and lg int w/o complications 1 Felix Wharton. [address] [facility], [facility] [address], [place], [address], [place]. tel:[phone] Referring Provider: Referral Self, USE FOR SELF REFERRALS. [facility], [address] [address], [place], [address], [place] tel:[phone] [facility] [place] Crohn's disease of both small and lg int w/o complications 1 Florin Reeder. [address] [facility], [facility] [address], [place], [address], [place]. tel:[phone] Referring Provider: Referral Self, USE FOR SELF REFERRALS. [facility], [address] [address], [place], [id number], [place] tel:[phone] [facility] Crohn's disease of both small and lg int w/o complications 1 Felix Wharton. [address] [facility], [facility] [address], [place], [address], [place]. tel:[phone] [facility], [address] [address], [place], [address], [place] tel:[phone] [facility] [place] [facility] Symptoms or Concerns (chief complaint) Crohn's disease of both small and lg int w/o complications 1 Sandhya White. [address] [facility], [facility] [address], [place], [address], [place]. tel:[phone] Referring Provider: Referral Self, USE FOR SELF REFERRALS. [facility], [address] [address], [place], [id number], [place] tel:[phone] [facility]'s [facility] of both small and lg int w/o complications 1 Felix Wharton. [address] [facility], [facility] [address], [place], [place], [address], [place]. tel:[phone] Referring Provider: Referral Self, USE FOR SELF REFERRALS. [facility], [address] [address], [place], [address], [place] tel:[phone] [facility] [place] Crohn's disease of both small and lg int w/o complications 1 Carmencita Dorado. [address] [facility], [facility] [address], [place], [address], [place]. tel:[phone] Referring Provider: Referral Self, USE FOR SELF REFERRALS. [facility], [address] [address], [place], [id number], [place] tel:[phone] [facility] [place] No Information 1 Felix Wharton. [address] [facility], [facility] [address], [place], [address], [place]. tel:[phone] [facility], [address] [address], [place], [address], [place] tel:[phone] [facility] [place] Crohn's disease of both small and lg int w/o complications 1 Florin Reeder. [address] [facility], [facility] [address], [place], [address], [place]. tel:[phone] Referring Provider: Referral Self, USE FOR SELF REFERRALS. [facility], [address] [address], [place], [address], [place] tel:[phone] [facility] [place] Crohn's disease of both small and lg int w/o complications 1 Alec Bruce. [address] [facility], [facility] [address], [place], [address], [place]. tel:[phone] Referring Provider: Referral Self, USE FOR SELF REFERRALS. [facility], [address] [address], [place], [address], [place] tel:[phone] [facility] Crohn's disease of both small and lg int w/o complications 1 Felix Mackenzie. [address] [facility], [facility] [address], [place], [address], [place]. tel:[phone] Referring Provider: Referral Self, USE FOR SELF REFERRALS. [facility], [address] [address], [place], [address], [place] tel:[phone] [facility] Crohn's disease of both small and lg int w/o complications 1 Felix Wharton. [address] [facility], [facility] [address], [place], [address], [place]. tel:[phone] [facility], [address] [address], [place], [address], [place] tel:[phone] [facility] [place] Crohn's disease of both small and lg int w/o complications 0 Benji Grant. [address] [facility], [facility] [address], [place], [address], [place]. tel:[phone] Referring Provider: Referral Self, USE FOR SELF REFERRALS. [facility], [address] [address], [place], [address], [place] tel:[phone] [facility] No Information 0 Benji Grant. [address] [facility], [facility] [address], [place], [address], [place]. tel:[phone] [facility], [address] [address], [place], [address], [place] tel:[phone] [facility] [place] Crohn's disease of both small and lg int w/o complications 0 Benji Grant. [address] [facility], [facility] [address], [place], [address], [place]. tel:[phone] Referring Provider: Referral Self, USE FOR SELF REFERRALS. [facility], [address] [address], [place], [address], [place] tel:[phone] [facility] [place] Crohn's disease of both small and lg int w/o complications 0 Nikunj Casanova. [address] [facility], [address], [id number], [place]. tel:[phone] Referring Provider: Referral Self, USE FOR SELF REFERRALS. [facility], [address] [address], [place], [address], [place] tel:[phone] [facility] Crohn's disease of both small and lg int w/o complications 0 Felix Wharton. [address], [address], [place]. tel:[phone] Referring Provider: Referral Self, USE FOR SELF REFERRALS. Established Level 4 or 25-39 min [facility], [address] [address], [place], [id number], [place] tel:[phone] [facility] GI Symptoms or Concerns (chief complaint) Crohn's disease of both small and lg int w/o complications 0 Felix Wharton. [address], [id number], [place]. tel:[phone] Referring Provider: Referral Self, USE FOR SELF REFERRALS. [facility], [address] [address], [place], [address], [place] tel:[phone] [facility] [place] Crohn's disease of both small and lg int w/o complications 0 Alec Bruce. [address] [facility], [facility] [address], [address], [place]. tel:[phone] Referring Provider: Referral Self, USE FOR SELF REFERRALS. [facility], [address] [address], [place], [address], [place] tel:[phone] [facility] [place] Crohn's disease of both small and lg int w/o complications 0 America Wells. [address] [facility], [facility] [address], [address], [place]. tel:[phone] Referring Provider: Referral Self, USE FOR SELF REFERRALS. [facility], [address] [address], [place], [address], [place] tel:[phone] [facility] Crohn's disease of both small and lg int w/o complications 0 Felix Wharton. [address] [facility], [facility] [address], [address], [place]. tel:[phone] Referring Provider: Referral Self, USE FOR SELF REFERRALS. [facility], [address] [address], [place], [address], [place] tel:[phone] [facility] [place] Crohn's disease of both small and lg int w/o complications 0 Estefany Ortiz. [address], [id number], [place]. tel:[phone] Referring Provider: Referral Self, USE FOR SELF REFERRALS. [facility], [address] [address], [place], [address], [place] tel:[phone] [facility] No Information 0 Felix Wharton. [address], [address], [place]. tel:[phone] [facility], [address] [address], [place], [address], [place] tel:[phone] [facility] Crohn's disease of both small and lg int w/o complications 0 Felix Wharton. [address], [id number], [place]. tel:[phone] [facility], [address] [address], [place], [address], [place] tel:[phone] [facility] Crohn's disease of both small and lg int w/o complications 0 Felix Wharton. [address] [facility], [facility] [address], [address], [place]. tel:[phone] [facility], [address] [address], [place], [address], [place] tel:[phone] [facility] Crohn's disease of both small and lg int w/o complications 9 Kalyan Carter. [address] [facility], [facility] [address], [place], [address], [place]. tel:[phone] Referring Provider: Referral Self, USE FOR SELF REFERRALS. [facility], [address] [address], [place], [address], [place] tel:[phone] [facility] No Information 9 Felix Wharton. [address] [facility], [address], [id number], [place]. tel:[phone] Offic/outpt E&m Estab Mod-hi 2 [facility], [address] [address], [place], [address], [place] tel:[phone] [facility] GI Symptoms or Concerns (chief complaint) Crohn's disease of both small and lg int w/o complications 9 Felix Wharton. [address] [facility], [facility] [address], [place], [id number], [place]. tel:[phone] [facility], [address] [address], [place], [id number], [place] tel:[phone] [facility] Crohn's disease of both small and lg int w/o complicationsC rohn's disease of both small and lg int w/o complicationsC rohn's disease of both small and lg int w/o complications 8 Felix Wharton. [address] [facility], [facility] [address], [place], [id number], [place]. tel:[phone] Referring Provider: Aayush Johnson MD, [facility] [place], [address]. tel:[phone] Offic/outpt E&m Estab Mod-hi 2 [facility], [address] [address], [facility] [place], [id number], [place] tel:[phone] [facility] GI Symptoms or Concerns (chief complaint) Crohn's disease of both small and lg int w/o complications 8 Felix Wharton. [address], [id number], [place]. tel:[phone] Referring Provider: Referral Self, USE FOR SELF REFERRALS. [facility], [address] [address], [place], [id number], [place] tel:[phone] [facility] Crohn's disease of both small and lg int w/o complications 8 Felix Wharton. [address], [id number], [place]. tel:[phone] Offic/outpt E&m Estab Mod-hi 2 [facility], [address] [address], [place], [id number], [place] tel:[phone] [facility] GI Symptoms or Concerns (chief complaint) Crohn's disease of both small and lg int w/o complications 0 7 Felix Wharton. [address], [id number], [place]. tel:[phone] Referring Provider: Aayush Johnson MD, [address] [place] [address], [address]. tel:[phone] Offic/outpt E&m Estab Mod-hi 2 [facility], [address] [address], [facility] [place], [id number], [place] tel:[phone] [facility] GI Symptoms or Concerns (chief complaint) Crohn's disease of both small and lg int w/o complications 7 Felix Wharton. [address], [id number], [place]. tel:[phone] [facility], [address] [address], [place], [place], [id number], [place] tel:[phone] [facility] Crohn's disease of both small and lg int w/o complications 7 Felix Wharton. [address] [facility], [facility] [address], [place], [id number], [place]. tel:[phone] [facility], [address] [address], [place], [id number], [place] tel:[phone] [facility] Crohn's disease of both small and lg int w/o complications 6 Felix Wharton. [address] [facility], [address], [id number], [place]. tel:[phone] Offic/outpt E&m Estab Mod-hi 4 [facility], [address] [address], [place], [id number], [place] tel:[phone] [facility] GI Symptoms or Concerns (chief complaint) Crohn's disease of both small and lg int w/o complications 6 Felix Wharton. [address] [facility], [address], [id number], [place]. tel: [phone] [facility], [address] [address], [place], [id number], [place] tel:[phone] [facility] Crohn's disease of both small and lg int w/o complications 6 Felix Wharton. [address] [facility], [facility] [address], [place], [id number], [place]. tel:[phone] [facility], [address] [address], [place], [id number], [place] tel:[phone] [facility] Crohn's disease of both small and large intestine without complications 5 Felix Wharton. [address] [facility], [facility] [address], [place], [id number], [place]. tel:[phone] Offic/outpt E&m Estab Mod-hi 2 [facility], [address] [address], [place], [id number], [place] tel:[phone] [facility] GI Symptoms or Concerns (chief complaint) Crohn's disease of both small and large intestine without complications 5 Felix Wharton. [address] [facility], [facility] [address], [place], [place], [address], [place]. tel:[phone] Referring Provider: Referral Self, USE FOR SELF REFERRALS. [facility], [address] [address], [place], [id number], [place] tel:[phone] [facility] No Information 5 Felix Wharton. [address] [facility], [facility] [address], [place], [id number], [place]. tel:[phone] [facility], [address] [address], [place], [id number], [place] tel:[phone] [facility] Crohn's Small/large Intestine 5 Felix Wharton. [address] [facility], [facility] [address], [place], [address], [place]. tel:[phone] Offic/outpt E&m Estab Mod-hi 2 [facility], [address] [address], [place], [id number], [place] tel:[phone] [facility] GI Symptoms or Concerns (chief complaint) Crohn's Small/large IntestineCrohn 's disease of both small and large intestine without complications 5 Felix Wharton. [address] [facility], [facility] [address], [place], [place], [id number], [place]. tel:[phone] Offic/outpt E&m Estab Mod-hi 2 [facility], [address] [address], [place], [place], [id number], [place] tel:[phone] [facility] GI Symptoms or Concerns (chief complaint) Crohn's Small/large Intestine Jan- 5 Felix Wharton. [address] [place] [address], [place], [place], [id number], [place]. tel:[phone] [facility], [address] [address], [place], [id number], [place] tel:[phone] [facility] Failure To Thrive PediatricsFail ure To Thrive PediatricsRegi onal Enteritis NosGastritisFa ilure To Thrive Pediatrics 5 No Information Offic/outpt E&m New Mod-hi [facility], [address] [address], [place], [id number], [place] tel:[phone] [facility] GI Symptoms or Concerns (chief complaint) Failure To Thrive Pediatrics Felix Wharton. [address] [address], [place], [place], [id number], . tel:[phone] Family History Family Member Type Diagnosis Age At Onset Father Problem (finding) Crohn's disease Father Problem (finding) asthma Mother Problem (finding) Alive and well Maternal grandmother Problem (finding) Lymphoma Immunizations Vaccine Date Status Comments SARS-COV-2 (COVID-19) vaccin e, mRNA, spike protein, LNP, preservative free, 30 mcg/0.3mL dose administered Note: [facility] bi-direct ional interface ; Source: Other Registry SARS-COV-2 (COVID-19) vaccin e, mRNA, spike protein, LNP, preservative free, 30 mcg/0.3mL dose administered Note: [facility] bi-direct ional interface ; Source: Other Registry SARS-COV-2 (COVID-19) vaccin e, mRNA, spike protein, LNP, preservative free, 30 mcg/0.3mL dose administered Note: [facility] bi-direct ional interface ; Source: Other Registry Influenza administered Note: [facility] bi-d irectional interface ; Source: Other Registry Afluria Qd administered Note: [facility] bi-directional interface ; Source: Other Registry Afluria Qd administered Note: [facility] bi-directional interface ; Source: Other Registry meningococcal B vaccine, ful ly recombinant administered Note: [facility] bi-direct ional interface ; Source: Other Registry Fluzone Quad 6mo or older administered Note: [facility] bi-direct ional interface ; Source: Other Registry meningococcal B vaccine, ful ly recombinant administered Note: [facility] bi-direct ional interface ; Source: Other Registry meningococcal polysaccharide (groups A, C, Y and W-135) diphtheria toxoid conjugate vaccine (MCV4P) administered Note: [facility] bi-direct ional interface ; Source: Other Registry Havrix pediatric administered Note: [facility] bi-directional interface ; Source: Other Registry Human Papillomavirus 9-daquan t vaccine administered Note: [facility] bi-direct ional interface ; Source: Other Registry Influenza administered Note: [facility] bi-d irectional interface ; Source: Other Registry Influenza, injectable, quadrivalent, preservative free, 3 yrs or older administered Note: Invalid docume nted admin date was . ; Source: Other Provider Human Papillomavirus 9-daquan t vaccine administered Note: [facility] bi-direct ional interface ; Source: Other Registry Influenza administered Note: [facility] bi-d irectional interface ; Source: Other Registry Influenza, injectable, quadrivalent, preservative free, 3 yrs or older administered Note: Invalid docume nted admin date was . ; Source: Other Provider Human Papillomavirus 9-daquan t vaccine administered Note: [facility] bi-direct ional interface ; Source: Other Registry Havrix pediatric administered Note: [facility] bi-directional interface ; Source: Other Registry Human Papillomavirus 9-daquan t vaccine administered Note: [facility] bi-direct ional interface ; Source: Other Registry Influenza administered Note: [facility] bi-d irectional interface ; Source: Other Registry Influenza virus vaccine, injectable, quadrivalent, split virus, preservative free, 3 years or older Fluarix Quad 6400-5437 administered Note: In valid documented admin date was . ; Source: Other Provider meningococcal oligosaccharid e (groups A, C, Y and W-135) diphtheria toxoid conjugate vaccine (MCV4O) administered Note: [facility] bi-direct ional interface ; Source: Other Registry tetanus toxoid, reduced diphtheria toxoid, and acellular pertussis vaccine, adsorbed administered Note: [facility] b i-directional interface ; Source: Other Registry varicella virus vaccine administered Note : [facility] bi-directional interface ; Source: Other Registry poliovirus vaccine, inactivated administe red Note: [facility] bi- directional interface ; Source: Other Registry measles, mumps and rubella v irus vaccine administered Note: [facility] bi-direct ional interface ; Source: Other Registry diphtheria, tetanus toxoids and acellular pertussis vaccine administered Note: [facility] b i-directional interface ; Source: Other Registry poliovirus vaccine, inactivated administe red Note: [facility] bi- directional interface ; Source: Other Registry measles, mumps and rubella v irus vaccine administered Note: [facility] bi-direct ional interface ; Source: Other Registry Haemophilus influenzae type b vaccine, PRP-T conjugate administered Note: [facility] bi-d irectional interface ; Source: Other Registry diphtheria, tetanus toxoids and acellular pertussis vaccine administered Note: [facility] b i-directional interface ; Source: Other Registry varicella virus vaccine administered Note : [facility] bi-directional interface ; Source: Other Registry Pneumovax administered Note: [facility] bi-d irectional interface ; Source: Other Registry Pneumovax administered Note: [facility] bi-d irectional interface ; Source: Other Registry Energix Pediatric administered Note: [facility] bi-directional interface ; Source: Other Registry Haemophilus influenzae type b vaccine, PRP-T conjugate administered Note: [facility] bi-d irectional interface ; Source: Other Registry Energix Pediatric administered Note: [facility] bi-directional interface ; Source: Other Registry diphtheria, tetanus toxoids and acellular pertussis vaccine administered Note: [facility] b i-directional interface ; Source: Other Registry Pneumovax administered Note: [facility] bi-d irectional interface ; Source: Other Registry Haemophilus influenzae type b vaccine, PRP-T conjugate administered Note: [facility] bi-d irectional interface ; Source: Other Registry diphtheria, tetanus toxoids and acellular pertussis vaccine administered Note: [facility] b i-directional interface ; Source: Other Registry poliovirus vaccine, inactivated administe red Note: [facility] bi- directional interface ; Source: Other Registry Pneumovax administered Note: [facility] bi-d irectional interface ; Source: Other Registry Haemophilus influenzae type b vaccine, PRP-T conjugate administered Note: [facility] bi-d irectional interface ; Source: Other Registry Energix Pediatric administered Note: [facility] bi-directional interface ; Source: Other Registry diphtheria, tetanus toxoids and acellular pertussis vaccine administered Note: [facility] b i-directional interface ; Source: Other Registry poliovirus vaccine, inactivated administe red Note: [facility] bi- directional interface ; Source: Other Registry Payers Payer name Insurance type Covered constitution party ID Authorbhargavia tifinesse(s) [employer] [facility] [id number] [facility] CI Remicade Social History Type Description Quantity Date Captured Comments Alcohol Use Details Unknown Caffeine Use Details Unknown Tobacco Use Status No Information Smoking Status No Information Sex Female Vital Signs Date / Time: Height Weight BMI Pulse Rate Blood Pressure Temperature Respiratory Rate Body Surface Area Head Circumference Head Circ. Percentile Wt./Jack. Percentile BMI percentile Pulse Ox Inhaled Ox 2:38 PM 89 /min 106/59 mm[Hg] 97.30 F 16 /min 2:45 PM 55.964 kg (123.40 lbs) 3:06 PM 55.964 kg (123.40 lbs) 79 /min 113/57 mm[Hg] 98.20 F 16 /min 3:40 PM 88 /min 111/60 mm[Hg] 98.60 F 16 /min Chief Complaint And Reason For Visit No Information Reason For Referral Reason For Referral No Information Plan Of Treatment Date Type Action Status Referral Ordered: follow-up visit 1 Year Appointment date/timeframe: 1 Year ordered Referral Ordered: Hepatic Function Panel Appointment date/timeframe: 06/11/2016 ordered Referral Ordered: Financial Counselor Review Appointment date/timeframe: -today ordered Referral Ordered: Calprotectin, Fecal Appointment date/timeframe: -today ordered Referral Ordered: follow-up visit with Akiko Washington MD 6 Months Appointment date/timeframe: 6 Months ordered Referral Ordered: MRI Enterography With Pelvis WITHOUT And WITH Contrast Appointment date/timeframe: -today ordered Appointment Segundo Fall BOOKED Appointment Segundo Fall BOOKED History Of Present Illness Encounter Date Complaint History Of Prese nt Illness GI Symptoms or Concerns GI Symptoms or Concerns I had th e pleasure of seeing Segundo for followup regarding her Crohn's disease. As you remember, she is a 21-year-old who was diagnosed in early 2014. On her 1st endoscopy and colonoscopy, there was mild chronic gastritis, chronic active ileitis with granulomas, and some mild patchy active colitis in the descending colon. Segundo' father has stricturing terminal ileal Crohn's disease and is status post ileocecectomy. Both Segundo and her father have been on biologics for many years. Segundo has had excellent resolution of symptoms and improvement in inflammatory markers. She has had no significant flares of disease.Even though her growth caught up and her symptoms resolved, she did continue for some time to have an elevated CRP with her regular laboratories. Her infliximab levels were ranging between 8 and 11, but there was still concern for occult chronic terminal ileitis. Therefore, she underwent repeat endoscopy and colonoscopy as well as MR enterography and a fecal calpr GI Symptoms or Concerns Previous History Review I had th e pleasure of seeing Segundo for follow-up regarding her Crohn's disease. As you remember, Segundo is 20 years old. and she was diagnosed in early 2014. On her 1st endoscopy and colonoscopy, there was mild chronic gastritis, chronic active ileitis with granulomas and some mild patchy active colitis in the descending colon. Segundo' father has stricturing terminal ileal Crohn's disease and is status post ileocecectomy and is on biologics now for many years. Segundo has also been on Remicade for over 5 years now and has had excellent resolution of symptoms and improvement in inflammatory markers.While her growth symptoms normalized, she continued for a long time to have mildly elevated CRP levels on her laboratories. Her infliximab levels had been ranging between 8 and 11, but we still had concern for occult chronic terminal ileitis. Therefore, she underwent multiple tests to look for ongoing inflammation. She had a fecal calprotectin, MR enterography and repeat endoscopy and colonoscopy. The repeat procedures were done on June 16, 2018 and were negative for any ongoing inflammation. All of the biopsies were normal. The MRE showed some mild hyperenhancement and restricted diffusion in the terminal ileum, but no thickening or evidence of stricturing disease or partial obstruction. We also obtained a PillCam study that was unremarkable. The calprotectin was normal. We made no changes to her medications. Thankfully, for the 1st time in the last few years, her CRP normalized last year. We are continuing to follow.She receives 300mg of Remicade every 8 weeks. She is due for her next infusion 09/08. She has received the COVID19 vaccine, with the second shot given in early March.Segundo is overall asymptomatic. She denies abdominal pain, diarrhea, or hematochezia. She has a normal appetite and intake and has not had any unintentional weight loss. She is studying at [employer]. She is in her sophomore year, and very busy with school (behavior science major, art minor) and with the [employer]. She recently had to quit a job at an [employer] because she was overwhelmed with work. GI Symptoms or Concerns GI Symptoms or Concerns I had th e pleasure of seeing Segundo for follow-up regarding her Crohn's disease. Segundo is now 20 years old. She attends this virtual visit independently and provides verbal consent to proceed.As you remember, she was diagnosed in early 2014. On her 1st endoscopy and colonoscopy, there was mild chronic gastritis, chronic active ileitis with granulomas and some mild patchy active colitis in the descending colon. Segundo' father has stricturing terminal ileal Crohn's disease and is status post ileocecectomy and is on biologics now for many years. Segundo has also been on Remicade for over 4 years now and has had excellent resolution of symptoms and improvement in inflammatory markers.While her growth symptoms normalized, she continued for a long time to have mildly elevated CRP levels on her laboratories. Her infliximab levels had been ranging between 8 and 11, but we still had concern for occult chronic terminal ileitis. Therefore, she underwent multiple tests to look fo GI Symptoms or Concerns I had th e pleasure of seeing Segundo for followup regarding her Crohn's ileocolitis. I last saw her in May 2018. As you remember, she is 18-year-old who was diagnosed in early 2014. On endoscopy and colonoscopy, there was mild chronic gastritis, chronic active ileitis with granulomas and some mild patchy active colitis in the descending colon. As you remember, Segundo' father has stricturing terminal ileal Crohn's disease and is status post ileocecectomy and is on biologic therapy. Segundo has been on Remicade for over 3 years now and has had excellent resolution of symptoms and improvement in inflammatory markers.While her growth and symptoms have normalized, she continues to have mildly elevated CRP levels on labs usually around 1 to 1.5. Her infliximab level has been between 8 and 11 on average. Last year, because of concerns of chronic occult inflammation in the small intestine, I recommended fecal calprotectin, MRE, and endoscopy and colonoscopy to assess for underlyin GI Symptoms or Concerns I had th e pleasure of seeing Segundo for followup regarding her terminal ileal Crohn's disease. As you know, she is a 17-year-old who was diagnosed in early 2014. On endoscopy and colonoscopy, there was mild nonspecific chronic gastritis and chronic active ileitis with granulomas consistent with Crohn's disease. She had some mild patchy active colitis in the descending colon. As you remember, Segundo' father has Crohn's disease, but it is inflammatory in nature and in the terminal ileum as well. He has a history of a stricture. Segundo has been on Remicade now for over 2 years. While her growth and symptoms had normalized, she continued to have mildly elevated CRP levels. Over time, with good biochemistries and adequate Remicade levels, her CRP is diminished somewhat, but still remained in an elevated level. On April 13, with her last labs, it was quite low, but at level of 0.55 within normal ranges up to 0.3. Her albumin was also just a little low at 3.2 and her hemoglobin was n GI Symptoms or Concerns I had th e pleasure of seeing Segundo for followup regarding her terminal ileal Crohn's disease. As you know, she has had growth failure and in December 2014, she had an upper GI small bowel follow-through that revealed evidence of some terminal ileitis. She then came to our practice and underwent upper endoscopy and colonoscopy. There was mild nonspecific chronic gastritis, and chronic active ileitis with granulomas consistent with Crohn's disease and some mild patchy active colitis in the descending colon. As you remember, Segundo' father has Crohn's disease that is inflammatory in the terminal ileum as well. He has had a history of stricture. He reports that he has been on methotrexate and Humira and is likely switching to Stelara soon. We have been tracking Segundo with regard to her response to Remicade for growth and biochemistries. She has been quite healthy and asymptomatic overall, however, her laboratory values often show mildly elevated CRP levels. Over the last two oc GI Symptoms or Concerns I had th e pleasure of seeing Segundo for followup regarding her terminal ileal Crohn's disease. As you know, she has had growth failure and in December 2014, she had an upper GI small bowel followthrough that revealed evidence of some terminal ileitis. She then came to our practice and underwent upper endoscopy and colonoscopy the following week. There was mild nonspecific chronic gastritis and chronic active ileitis with granulomas consistent with Crohn's disease. Colonic biopsies showed no evidence of colitis in the proximal colon. In the descending colon, there was patchy mild active colitis. Rectal biopsies were normal.As you remember, Segundo' father has Crohn's disease as well. He also has terminal ileal disease with a stricture. He has not yet had required resection, but he has been on methotrexate and Humira. To start, we used topical therapies to see if her disease could be controlled without systemic medication at first. However, her inflammatory markers and hypoa GI Symptoms or Concerns I had th e pleasure of seeing Segundo for followup regarding her Crohn's disease. She has had growth failure and an upper GI small bowel followthrough on December 20, 2014, revealed evidence of some terminal ileitis. She then underwent upper endoscopy and colonoscopy on December 27 of last year. There was mild nonspecific chronic gastritis and chronic active ileitis with granulomas consistent with Crohn's disease. The colonic biopsies showed no evidence of colitis in the ascending or transverse regions. In the descending colon, there was patchy mild active colitis with subtle features of chronicity. Rectal biopsies were normal.As you remember, Segundo's father has Crohn's disease as well. He was just diagnosed in the last few years and has terminal ileal disease with stricture. He has not yet required resection, but has been started on methotrexate and Humira. He attends the visit with her today and also learned new information about the family history recently. Evidently, A GI Symptoms or Concerns I had th e pleasure of seeing Segundo for followup regarding her Crohn's ileitis. As you know, she was diagnosed on December 27 after presenting with growth failure and anemia. Her father also has Crohn's disease that is primarily affecting the terminal ileum. On biopsies, Segundo had granulomas in the terminal ileum along with chronic active ileitis. She also had some mild patchy left-sided colitis.She attends the visit with her father and reports feeling asymptomatic and overall quite well. She denies any fevers, oral ulcers, diarrhea or blood in her stool. She has an excellent appetite and intake. She has continued to show significant improved weight gain since her last visit. She is currently just on Entocort. I reviewed her last labs, which were done in June. Her sed rate was 13, hemoglobin 14 with an MCV of 87, and albumin 3.4. The glucose was mildly elevated at 118. CRP still elevated at 9 and iron level normal at 83.Segundo also had an MRE study on January 15 GI Symptoms or Concerns I had th e pleasure of seeing Segundo for followup regarding her Crohn's ileitis. As you know, she was diagnosed on December 27 and after presenting with a growth failure and anemia. As you remember, her father also has Crohn's disease that has primarily affected the terminal ileum. On biopsies, she had granulomas in the terminal ileum along with chronic active ileitis. She also had some mild patchy left-sided colitis. She has continued to be asymptomatic. She attends the visit with her father and reports no new symptoms. No fevers, oral ulcers, diarrhea or blood in her stool. She has had a normal appetite and intake and is quite pleased that she has had significant weight gain since her last visit. She has gained approximately five pounds since I saw her in early January. She remains on iron supplementation and Entocort only. She also reports improved energy level. Father thinks that she has a better color and no longer appears ill. GI Symptoms or Concerns I had th e pleasure of seeing Segundo for followup regarding her new diagnosis of Crohn's disease. As you know, I first saw her on December 23. She has had long-standing growth failure. She also, on laboratory evaluation, had an elevated CRP and mild anemia. Her albumin was 3.6 and her sedimentation rate was 16. CRP was 15.5. She then underwent upper endoscopy and a colonoscopy on December 27. The duodenum was normal. There was very mild nonspecific chronic gastritis. The esophagus was normal. There was chronic active ileitis with granulomas consistent with Crohn's disease. The colonic biopsies showed no evidence of colitis in the ascending or transverse sections. In the descending colon, there was patchy mild active colitis with subtle features of chronicity. The rectum biopsies were normal.As you remember, Segundo's father has Crohn's disease as well. He was just diagnosed in the last couple of years and has terminal ileal disease. He has not required resection, but eviden GI Symptoms or Concerns I had th e pleasure of seeing Segundo for initial consultation regarding possible Crohn's disease. She has had growth failure and a recent upper GI small bowel follow-through done on December 20 revealed evidence of some terminal ileitis .She attends the visit with her parents. Segundo is a 14-year-old who has had chronic growth failure. I do also see a bone age on 10/20/2014 that was within normal standard deviations.Her father has Crohn's disease with terminal ileal disease. He was just diagnosed about two years ago and is on both Humira and methotrexate. Evidently, he is still symptomatic. The aunt and paternal grandmother and maternal great aunt have rheumatoid arthritis. No other known autoimmune diseases. The maternal grandmother had lymphoma.On review of systems, Segundo has had oral ulcers. She reports having bowel movements approximately daily that are non bloody. They are formed and she denies any episodes of diarrhea. She has had no fevers, arthralgias, per Functional Status Date Functional Assessmen t No Information Instructions Date Instruction Additional Infor hawa Segundo is a 22-year- old with inflammatory-type Crohn's ileocolitis that is in remission. She is not due for repeat endoscopy or colonoscopy. We will continue to check laboratories at least every 6 months. With her next set, I am ordering an infliximab level, sed rate and CRP. She will need to transition to the adult GI practice for her next visit, but does not need to be seen for another year unless new issues arise. I have made no changes. I did recommend that she start to monitor and track the monthly pattern of lower cramping. I do suspect she is right that this probably tracks more with the change in hormones around where she would normally have her menses rather than a Crohn's flare and she is not experiencing symptoms in the week before Remicade. Currently, she is doing so well. I hope she continues to do well and I wish her well. Related to Crohn's disease of both small and lg int w/o complications -Labs in 1 month wit h infusion, then 6 months later-Try IBGard (otc supplement ) for IBS like symptoms. (Can also consider the low FODMAP diet)-1 year follow-up Related to Crohn's disease of both small and lg int w/o complications Infliximab IV per celerated protocol -Labs with the next infusion-Continue current dose of remicade. -Follow-up in 1 year. Related to Crohn's disease of both small and lg int w/o complications 1. Continue on the R emicade as currently dosed. This is monotherapy.2. I would like to see her [...] allowing me to participate in Segundo' care. Related to Crohn's disease of both small and lg int w/o complications Infliximab IV per ac celerated protocol Infliximab IV per ac celerated protocol Infliximab IV per ac celerated protocol 1. As above, we will obtain the PillCam study of the small intestine to look for an occult inflammation. It [...] pleasure to see her and her family. Related to Crohn's disease of both small and lg int w/o complications 1. I again strongly recommend sending a fecal calprotectin test. Father will check with insurance again as he [...] will be taking a family trip to [facility] in mid June, June 17 [...] allowing me to participate in Segundo' care. Related to Crohn's disease of both small and lg int w/o complications 1. As above. She aaron l continue to get her labs right before the infusion at [facility]. She continues on an tyngy-hppyv-yzlm infusion cycle.2. I would like to see her for followup in six months. I wished her well in her adventures in [place].Thank you for allowing me to participate in her continued care. Related to Crohn's disease of both small and lg int w/o complications As above. I would li ke to see her back in six months. I answered all of their questions. Related to Crohn's disease of both small and lg int w/o complications I have put through a n order for financial approval for the Remicade to start. I also ordered labs to [...] allowing me to participate in her care. Related to Crohn's disease of both small and lg int w/o complications C-Reactive Protein I continue to be ple ased with Segundo' current clinical status. She is in clinical remission. Based on her last labs, however, she is not in biochemical remission. At this point, she is due for labs. I have mentioned in the past that we may need to add 6-MP or switch to Remicade, both of which would be more effective treatment for her Crohn's disease over the business support professional. However, in some children with just a vawp-mr-vzmyvprb activity of the terminal ileum, they do [...] allowing me to participate in her care. Related to Crohn's disease of both small and large intestine without complications I am pleased with Dileep guevara' current clinical status. I reviewed again the results of the MRE study that was [...] allowing me to participate in her care. Related to Crohn's Small/large Intestine Segundo has Crohn's d isease, primarily with terminal ileitis and some mild patchy colitis. This likely is the primary [...] me to participate in her continued care. 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
--- OUTSIDE RECORDS SUMMARY | 2023-11-13 10:04 | XMS_ITS | Encounter Summary ---
Author Name Unknown Organization [facility] Address [address] [place] [address] Care Team Providers Care Herd Tester Name Role Phone Unavailable Primary Care Provider Unavailabl e Reason for Visit * Reason Comments Blepharitis Right lower eyelid s tarted swelling yesterday. No vision changes Encounter Details Date Type Department Care Team (Late st Contact Info) Description 05/07/2023 11:20 AM CDT Office Visit Urgent Care in [place], [place] [address] [place] [phone] Ashley Mejia, XiomaraP.N.P., M.S.N., R.N. [address] [place] [address] Cellulitis Preseptal (Primary Dx) Social History Tobacco Use Types [...] on file documented as of this encounter Last Filed Vital Signs Vital Sign Reading [...] - - Body Mass Index - - documented in this encounter Patient Instructions * Patient Instructions* Ashley Mejia A.P.N.Jase., M.S.N., R.N. - 05/07/2023 11:20 AM CDT Cellulitis is infection of the skin, commonly requiring an antibiotic for treatment. Please keep the site as clean as possible by gently cleansing the wound with antimicrobial soap at least once daily, applying an antibiotic ointment such as bacitracin (if the wound area is open), and covering the area with a non adherent dressing such as Telfa. Start Cefadroxil twice a day for [address] hot or ice packs to the affected area 3 times per day for about 20 minutes and take ojqk-qxl-axgpvnh medications such as ibuprofen or Tylenol to decrease pain. Do not fall asleep with ahot pack or ice pack on as it may damage the skin. If possible, elevate the affected area above level of the heart to decrease swelling. Signs of skin infection include: fever, chills, increased pain, redness, heat, swelling, and/or pusdrainage. Please follow-up if worsening signs or symptoms of infection develop. Please follow up ifthis does not go away with antibiotics or if it gets worse. You should have improvement within 48 hours Please take antibiotic with food, and large glass of water to avoid stomach upset. Please eat live-culture yogurt or probiotic daily at least 2 hours away from time you took the antibiotic. If side effects such as rash or moderate- severe diarrhea develops from the antibiotic, stop taking the antibiotic and contact the urgent care or your primary care provider. However, if swelling of the face or difficulty breathing develops, call 911 for emergency care as this may be a life-threatening reaction to the antibiotic. * Attachments The following attachments cannot be sent through Care Everywhere. * Preseptal Cellulitis Adult (Nepali) documented in this encounter Progress Notes * Ashley Mejia A.P.N.P., M.S.N., R.N. - 05/07/2023 11:20 AM CDT Images from the original note were not included. SUBJECTIVE CHIEF COMPLAINT / REASON FOR VISIT Chief Complaint Patient presents with Blepharitis Right lower eyelid started swelling yesterday. No vision changes HISTORY OF PRESENT ILLNESS Segundo is a pleasant 22 y.o. female presents today with reports of possible septal cellulitis. Patient reports that she had what she believes to be a pimple below her right eye. She states over the last couple of days it has gotten larger and red. It is tender and warm to the touch. She also has some swelling to the entire lower eyelid. She has been doing warm compresses which have been somewhat helpful. She also tried some ice. She is no pain with eye movement. She denies any visual changes. She does not wear contacts or glasses. She is not been having any systemic symptoms such as fevers orchills. Her HPI is otherwise negative. The following portions of the patient's history were reviewed and updated as appropriate: allergies, current medications, family history, medical history, social history, surgical history, and problem list. OBJECTIVE Vitals: 05/07/23 1132 BP: 108/60 BP Location: Right arm Patient Position: Sitting Cuff Size: Regular Pulse: 95 Resp: 18 Temp: 36.3 ??C TempSrc: Temporal SpO2: 100% Weight: 54.7 kg There is no height or weight on file to calculate BMI. PHYSICAL EXAMINATION Vitals and nursing note reviewed. Constitutional General: She is not in acute distress. Appearance: Normal appearance. She is not ill-appearing, toxic-appearing or diaphoretic. HENT Head: Normocephalic and atraumatic. Eyes General: No scleral icterus. Right eye: No discharge. Left eye: No discharge. Extraocular Movements: Extraocular movements intact. Conjunctiva/sclera: Conjunctivae normal. Pupils: Pupils are equal, round, and reactive to light. Comments: Patient has 1 area of redness in the area indicated above, and her entire lower eyelid isedematous. Cardiovascular Rate and Rhythm: Normal rate. Pulmonary Effort: Pulmonary effort is normal. Neurological General: No focal deficit present. Mental Status: She is alert and oriented to person, place, and time. Mental status is at baseline. ASSESSMENT / PLAN #1 Cellulitis Preseptal Other orders - cefadroxil (DURICEF) 500 mg capsule; Take 1 capsule (500 mg total) by mouth 2 (two) times a day for 5 days., Starting 05/07/2023, Until 05/12/2023, Normal On examination patient presents in no acute distress is nontoxic in appearance. She does have some erythematous tissue below her right eye. It is slightly tender to the touch. I am going to treat this as preseptal cellulitis. Please see her discharge summary for return precautions and Education provided today. Patient made aware of emergent signs and symptoms and when to seek additional care. Patient encouraged to return to urgent care or their primary care provider if any health questions or concerns persist, worsen, or develop. documented in this encounter Plan of Treatment Not on file documented as of this encounter Visit Diagnoses Diagnosis Cellulitis Preseptal- Primary documented in this encounter
== END 2023-11-13 09:52 | disposition home or self-care (01) ==
PROVIDERS: PCP Family Medicine; Visit Provider Family Medicine
DX: F41.1 Generalized anxiety disorder (principal); F32.A Depression, unspecified; K50.90 Crohn's disease, unspecified, without complications; R53.83 Other fatigue; E55.9 Vitamin D deficiency, unspecified; Z13.6 Encounter for screening for cardiovascular disorders
CPT/HCPCS: 80053; 80061; 82306; 82607; 84443